=== PATIENT | female | born 1950 | race Caucasian/White ===

== ENCOUNTER 2022-08-20 18:56 | Emergency (ER) | payer OTHER ==
--- OUTSIDE RECORDS SUMMARY | 2022-08-20 19:03 | XMS REPORT | Continuity of Care Document ---
:[address] [facility] t Address [address] [place] [address] Care Team Providers Name Role Phone Mikal Kirby Attending Clinician Unavailable Ofe Christianson Attending Clinician Ethan Attending Clinician Unavailable Danielle PHIPPS Trung Attending Clinician January Vaughan Attending Clinician Norris Archuleta Attending Clinician Unavailable Tao_Brodie Attending Clinician Unavailable Clement_Marianne Admitting Clinician Unavailable Referred, Self Admitting Clinician Unavailable Tao_Brodie Admitting Clinician Unavailable Payers Payer Name Policy Type Policy Effective Date Expiration Date Sour ce Number [facility] [id number] 2021 (MEDICARE 00:00:00 REPLACEMENT HMO) [place] [address] [id number] Common [facility] Problems Condition Condition Condition Status Onset Resolution Last Treating Co mments Source Name Details Category Date Date Treatment Clinician Date [id number] Chronic Problem Common sinusitis, Spirit unspecifie - [facility] [id number] Chronic Problem Common obstructiv [facility] type [id number] GERD Problem Common without Spirit esophagiti - [facility] [id number] Primary Problem Common insomnia [facility] [id number] Pain, Problem Common joint, Spirit knee, - [facility] right [facility] [id number] Current Problem Common moderate Spirit episode of - [facility] prior episode [id number] Right Problem Common sciatic Spirit nerve pain - [facility] Retinal Retinal Problem Common disorder disorder [facility] Disorder Burning Problem Common of female sensation Spir it genital of female - [facility] organs pelvis [facility] Bladder Bladder Problem Common problem problem [facility] [id number] Stage 3a Problem Comm on chronic Spirit kidney - [facility] disease [facility] [id number] Contusion Problem Comm on of right Spirit knee, - [facility] initial [facility] [id number] Microscopi Problem Co mmon c Spirit hematuria - [facility] [id number] Pelvic Problem Common pain in Spirit female [facility] [id number] Lower Problem Common urinary [facility] [id number] BRENDA Problem Common (generaliz Spirit ed anxiety - [facility] disorder) [facility] [id number] Mixed Problem Common hyperlipid Spirit emia - [facility] [id number] Diverticul Problem Co mmon osis Spirit [facility] [id number] Pelvic Problem Common pain [facility] [id number] Essential Problem Comm on hypertensi Spirit on [facility] Allergies, Adverse Reactions, Alerts Allergy Allergy Status Severity Reaction(s) Onset Inactive Treating Comm ents Source Name Type Date Date Clinician Codeine Codeine Active Unknown Common [facility] metronid metronid Active Unknown Commo n azole azole [facility] bacitrac bacitrac Active Unknown Commo n in in Spirit - [facility] Latex Latex Active Unknown Common Spirit - [facility] Social History Social Habit Start Date Stop Date Quantity Comments Source History of Tobacco Common Spirit - [facility] Use [facility] Sex Assigned At [birth year] [facility] 00:00:00 00:00:00 Smoking Status Start Date Stop Date Source [facility] Former Smoker 2022-08-16 00:00:00 2022-08-16 Common Spiri t [facility] nter Medications Ordered Filled Start Stop Current Ordering Indication Dosage Frequency Signature Comments Components Source Medication Medication Date Date Medication? Clinician (SIG) Name Name Alfuzosin Alfuzosin 2022- No 1{table QD Alfuzosin HCl ER 10 HCl ER 10 08-16 t_immed HCl ER 10 MG MG 00:00: 00:00 iately_ MG 00 :00 after_t he_same _meal} Omeprazole Omeprazole 2021-08 No QD Omeprazole 40 MG 40 MG -09 40 MG 00:00: 00 Omeprazole Omeprazole 2021-08 No QD Omeprazole 40 MG 40 MG 1-09 40 MG 00:00: 00 Omeprazole Omeprazole 2021-08 No QD Omeprazole 40 MG 40 MG 1-09 40 MG 00:00: 00 Omeprazole Omeprazole 2021-08 No QD Omeprazole 40 MG 40 MG 1-09 40 MG 00:00: 00 cloNIDine cloNIDine 2021-08 No QD cloNIDine HCl 0.1 MG HCl 0.1 MG 0-03 HCl 0.1 MG 00:00: 00 Telmisartan Telmisartan 2021-08 No 1{table QD Telmisarta -HCTZ 80-25 -HCTZ 80-25 0-03 t} n-HCTZ MG MG 00:00: 80-25 MG 00 cloNIDine cloNIDine 2021-08 No QD cloNIDine HCl 0.1 MG HCl 0.1 MG 0-03 HCl 0.1 MG 00:00: 00 Telmisartan Telmisartan 2021-08 No 1{table QD Telmisarta -HCTZ 80-25 -HCTZ 80-25 0-03 t} n-HCTZ MG MG 00:00: 80-25 MG 00 cloNIDine cloNIDine 2021-08 No QD cloNIDine HCl 0.1 MG HCl 0.1 MG 0-03 HCl 0.1 MG 00:00: 00 Telmisartan Telmisartan 2021-1 No 1{table QD Telmisarta -HCTZ 80-25 -HCTZ 80-25 0-03 t} n-HCTZ MG MG 00:00: 80-25 MG 00 cloNIDine cloNIDine 2-1 No QD cloNIDine HCl 0.1 MG HCl 0.1 MG 0-03 HCl 0.1 MG 00:00: 00 Telmisartan Telmisartan 2021-1 No 1{table QD Telmisarta -HCTZ 80-25 -HCTZ 80-25 0-03 t} n-HCTZ MG MG 00:00: 80-25 MG 00 cloNIDine cloNIDine 2021-1 No QD cloNIDine HCl 0.1 MG HCl 0.1 MG 0-03 HCl 0.1 MG 00:00: 00 Telmisartan Telmisartan 2021-1 No 1{table QD Telmisarta -HCTZ 80-25 -HCTZ 80-25 0-03 t} n-HCTZ MG MG 00:00: 80-25 MG 00 cloNIDine cloNIDine 2021-1 No QD cloNIDine HCl 0.1 MG HCl 0.1 MG 0-03 HCl 0.1 MG 00:00: 00 Telmisartan Telmisartan 2021- No 1{table QD Telmisarta -HCTZ 80-25 -HCTZ 80-25 0-03 t} n-HCTZ MG MG 00:00: 80-25 MG 00 Protonix 40 Protonix 40 2-0 No 1{table QD Protonix MG MG 7-20 t} 40 MG 00:00: 00 Protonix 40 Protonix 40 2021-0 No 1{table QD Protonix MG MG 7-20 t} 40 MG 00:00: 00 Protonix 40 Protonix 40 2021-0 No 1{table QD Protonix MG MG 7-20 t} 40 MG 00:00: 00 Nystatin Nystatin 2021-0 2021- No QID Nystatin 169259 022732 12-09 [id number] UNIT/ML UNIT/ML 00:00: 00:00 UNIT/ML 00 :00 Nystatin Nystatin 2021-0 2021- No QID Nystatin 275910 [id number] 4-29 05-13 [id number] UNIT/ML UNIT/ML 00:00: 00:00 UNIT/ML 00 :00 Anoro Anoro 2021-0 2- No 1{puff} QD Anoro Ellipta Ellipta - 05-08 Ellipta 62.5mcg/25 62.5mcg/25 00:00: 00:00 62.5mcg/25 mcg mcg 00 :00 mcg Anoro Anoro 2021-0 2- No 1{puff} QD Anoro Ellipta Ellipta 12-09 05-08 Ellipta 62.5mcg/25 62.5mcg/25 00:00: 00:00 62.5mcg/25 mcg mcg 00 :00 mcg Breo Breo 2021-2021- No 1{puff} QD Breo Ellipta Ellipta 4-21 07-21 Ellipta 200-25 200-25 00:00: 00:00 200-25 MCG/INH MCG/INH 00 :00 MCG/INH Breo Breo 2021-0 2- No 1{puff} QD Breo Ellipta Ellipta 4-21 07-21 Ellipta 200-25 200-25 00:00: 00:00 200-25 MCG/INH MCG/INH 00 :00 MCG/INH Breo Breo 2021-0 2- No 1{puff} QD Breo Ellipta Ellipta 4-21 07-21 Ellipta 200-25 200-25 00:00: 00:00 200-25 MCG/INH MCG/INH 00 :00 MCG/INH Breo Breo 2021-0 2- No 1{puff} QD Breo Ellipta Ellipta 4-21 07-21 Ellipta 200-25 200-25 00:00: 00:00 200-25 MCG/INH MCG/INH 00 :00 MCG/INH Breo Breo 2021-0 2- No 1{puff} QD Breo Ellipta Ellipta 4-21 07-21 Ellipta 200-25 200-25 00:00: 00:00 200-25 MCG/INH MCG/INH 00 :00 MCG/INH Breo Breo 2021-0 2- No 1{puff} QD Breo Ellipta Ellipta 4-21 07-20 Ellipta 200-25 200-25 00:00: 00:00 200-25 MCG/INH MCG/INH 00 :00 MCG/INH Breo Breo 2020-0 1- No 1{puff} QD Breo Ellipta Ellipta 8-17 12-15 Ellipta 200-25 200-25 00:00: 00:00 200-25 MCG/INH MCG/INH 00 :00 MCG/INH Spiriva Spiriva Yes Oscar not Common HandiHaler HandiHaler Tip defined [facility] Advair Advair Yes Oscar not Common Diskus Diskus Tip defined [facility] Omeprazole Omeprazole Yes Oscar not C ommon Tip defined [facility] Losartan Losartan Yes Oscar not Commo n Potassium-H Potassium-H Tip defined [facility] CTZ CTZ [facility] PredniSONE PredniSONE Yes Oscar not C ommon Tip defined [facility] Telmisartan Telmisartan Yes Oscar not Common -HCTZ -HCTZ Tip defined [facility] Citalopram Citalopram Yes Oscar not C ommon Hydrobromid Hydrobromid Tip defined [facility] e e [facility] Protonix 40 Protonix 40 No 1{table QD Protonix MG MG t} 40 MG Citalopram Citalopram No 1{table QD Citalopram Hydrobromid Hydrobromid t} Hydrobromi e 10 MG e 10 MG de 10 MG Famotidine Famotidine No 1{table QD Famotidine 20 MG 20 MG t_at_be 20 MG dtime_a s_neede d} Anoro Anoro No 1{puff} QD Anoro Ellipta Ellipta Ellipta 62.5mcg/25 62.5mcg/25 62.5mcg/25 mcg mcg mcg Losartan Losartan No Losartan Potassium-H Potassium-H Potassium- CTZ CTZ HCTZ Telmisartan Telmisartan No 1{table QD Telmisarta 80 MG 80 MG t} n 80 MG hydroCHLORO hydroCHLORO No 1{table QD hydroCHLOR thiazide 25 thiazide 25 t_in_th Othiazide MG MG e_morni 25 MG ng} Omeprazole Omeprazole No Omeprazole Spiriva Spiriva No Spiriva HandiHaler HandiHaler HandiHaler Citalopram Citalopram No 1{table QD Citalopram Hydrobromid Hydrobromid t} Hydrobromi e 10 MG e 10 MG de 10 MG predniSONE predniSONE No predniSONE Advair Advair No Advair Diskus Diskus Diskus Famotidine Famotidine No 1{table QD Famotidine 20 MG 20 MG t_at_be 20 MG dtime_a s_neede d} hydroCHLORO hydroCHLORO No 1{table QD hydroCHLOR thiazide 25 thiazide 25 t_in_th Othiazide MG MG e_morni 25 MG ng} Losartan Losartan No Losartan Potassium-H Potassium-H Potassium- CTZ CTZ HCTZ Omeprazole Omeprazole No Omeprazole Spiriva Spiriva No Spiriva HandiHaler HandiHaler HandiHaler Advair Advair No Advair Diskus Diskus Diskus Telmisartan Telmisartan No 1{table QD Telmisarta 80 MG 80 MG t} n 80 MG Citalopram Citalopram No Citalopram Hydrobromid Hydrobromid Hydrobromi e 10 MG e 10 MG de 10 MG hydroCHLORO hydroCHLORO No hydroCHLOR thiazide 25 thiazide 25 Othiazide MG MG 25 MG Famotidine Famotidine No 1{table QD Famotidine 20 MG 20 MG t_at_be 20 MG dtime_a s_neede d} Famotidine Famotidine No Famotidine 20 MG 20 MG 20 MG Citalopram Citalopram No 1{table QD Citalopram Hydrobromid Hydrobromid t} Hydrobromi e 10 MG e 10 MG de 10 MG predniSONE predniSONE No predniSONE Telmisartan Telmisartan No Telmisarta 80 MG 80 MG n 80 MG hydroCHLORO hydroCHLORO No 1{table QD hydroCHLOR thiazide 25 thiazide 25 t_in_th Othiazide MG MG e_morni 25 MG ng} Losartan Losartan No Losartan Potassium-H Potassium-H Potassium- CTZ CTZ HCTZ Omeprazole Omeprazole No Omeprazole Spiriva Spiriva No Spiriva HandiHaler HandiHaler HandiHaler Advair Advair No Advair Diskus Diskus Diskus Telmisartan Telmisartan No 1{table QD Telmisarta 80 MG 80 MG t} n 80 MG Citalopram Citalopram No Citalopram Hydrobromid Hydrobromid Hydrobromi e 10 MG e 10 MG de 10 MG hydroCHLORO hydroCHLORO No hydroCHLOR thiazide 25 thiazide 25 Othiazide MG MG 25 MG Famotidine Famotidine No 1{table QD Famotidine 20 MG 20 MG t_at_be 20 MG dtime_a s_neede d} Famotidine Famotidine No Famotidine 20 MG 20 MG 20 MG Citalopram Citalopram No 1{table QD Citalopram Hydrobromid Hydrobromid t} Hydrobromi e 10 MG e 10 MG de 10 MG predniSONE predniSONE No predniSONE Telmisartan Telmisartan No Telmisarta 80 MG 80 MG n 80 MG Citalopram Citalopram No Citalopram Hydrobromid Hydrobromid Hydrobromi e 10 MG e 10 MG de 10 MG Losartan Losartan No Losartan Potassium-H Potassium-H Potassium- CTZ CTZ HCTZ Omeprazole Omeprazole No Omeprazole Spiriva Spiriva No Spiriva HandiHaler HandiHaler HandiHaler Advair Advair No Advair Diskus Diskus Diskus Famotidine Famotidine No 1{table QD Famotidine 20 MG 20 MG t_at_be 20 MG dtime_a s_neede d} hydroCHLORO hydroCHLORO No 1{table QD hydroCHLOR thiazide 25 thiazide 25 t_in_th Othiazide MG MG e_morni 25 MG ng} hydroCHLORO hydroCHLORO No hydroCHLOR thiazide 25 thiazide 25 Othiazide MG MG 25 MG Telmisartan Telmisartan No 1{table QD Telmisarta 80 MG 80 MG t} n 80 MG Famotidine Famotidine No Famotidine 20 MG 20 MG 20 MG Citalopram Citalopram No 1{table QD Citalopram Hydrobromid Hydrobromid t} Hydrobromi e 10 MG e 10 MG de 10 MG predniSONE predniSONE No predniSONE Telmisartan Telmisartan No Telmisarta 80 MG 80 MG n 80 MG Citalopram Citalopram No Citalopram Hydrobromid Hydrobromid Hydrobromi e 10 MG e 10 MG de 10 MG Citalopram Citalopram No 1{table QD Citalopram Hydrobromid Hydrobromid t} Hydrobromi e 10 MG e 10 MG de 10 MG hydroCHLORO hydroCHLORO No hydroCHLOR thiazide 25 thiazide 25 Othiazide MG MG 25 MG Telmisartan Telmisartan No 1{table QD Telmisarta 80 MG 80 MG t} n 80 MG predniSONE predniSONE No predniSONE Spiriva Spiriva No Spiriva HandiHaler HandiHaler HandiHaler Omeprazole Omeprazole No Omeprazole Famotidine Famotidine No 1{table QD Famotidine 20 MG 20 MG t_at_be 20 MG dtime_a s_neede d} hydroCHLORO hydroCHLORO No 1{table QD hydroCHLOR thiazide 25 thiazide 25 t_in_th Othiazide MG MG e_morni 25 MG ng} Losartan Losartan No Losartan Potassium-H Potassium-H Potassium- CTZ CTZ HCTZ Telmisartan Telmisartan No Telmisarta 80 MG 80 MG n 80 MG Famotidine Famotidine No Famotidine 20 MG 20 MG 20 MG Advair Advair No Advair Diskus Diskus Diskus Losartan Losartan No Losartan Potassium-H Potassium-H Potassium- CTZ CTZ HCTZ Citalopram Citalopram No 1{table QD Citalopram Hydrobromid Hydrobromid t} Hydrobromi e 10 MG e 10 MG de 10 MG hydroCHLORO hydroCHLORO No hydroCHLOR thiazide 25 thiazide 25 Othiazide MG MG 25 MG Telmisartan Telmisartan No 1{table QD Telmisarta 80 MG 80 MG t} n 80 MG predniSONE predniSONE No predniSONE Omeprazole Omeprazole No Omeprazole Citalopram Citalopram No Citalopram Hydrobromid Hydrobromid Hydrobromi e 10 MG e 10 MG de 10 MG hydroCHLORO hydroCHLORO No 1{table QD hydroCHLOR thiazide 25 thiazide 25 t_in_th Othiazide MG MG e_morni 25 MG ng} Famotidine Famotidine No Famotidine 20 MG 20 MG 20 MG Spiriva Spiriva No Spiriva HandiHaler HandiHaler HandiHaler Telmisartan Telmisartan No Telmisarta 80 MG 80 MG n 80 MG Famotidine Famotidine No 1{table QD Famotidine 20 MG 20 MG t_at_be 20 MG dtime_a s_neede d} Advair Advair No Advair Diskus Diskus Diskus Losartan Losartan No Losartan Potassium-H Potassium-H Potassium- CTZ CTZ HCTZ Citalopram Citalopram No 1{table QD Citalopram Hydrobromid Hydrobromid t} Hydrobromi e 10 MG e 10 MG de 10 MG hydroCHLORO hydroCHLORO No hydroCHLOR thiazide 25 thiazide 25 Othiazide MG MG 25 MG Telmisartan Telmisartan No 1{table QD Telmisarta 80 MG 80 MG t} n 80 MG predniSONE predniSONE No predniSONE Omeprazole Omeprazole No Omeprazole Citalopram Citalopram No Citalopram Hydrobromid Hydrobromid Hydrobromi e 10 MG e 10 MG de 10 MG hydroCHLORO hydroCHLORO No 1{table QD hydroCHLOR thiazide 25 thiazide 25 t_in_th Othiazide MG MG e_morni 25 MG ng} Famotidine Famotidine No Famotidine 20 MG 20 MG 20 MG Spiriva Spiriva No Spiriva HandiHaler HandiHaler HandiHaler Telmisartan Telmisartan No Telmisarta 80 MG 80 MG n 80 MG Famotidine Famotidine No 1{table QD Famotidine 20 MG 20 MG t_at_be 20 MG dtime_a s_neede d} Advair Advair No Advair Diskus Diskus Diskus Losartan Losartan No Losartan Potassium-H Potassium-H Potassium- CTZ CTZ HCTZ Citalopram Citalopram No 1{table QD Citalopram Hydrobromid Hydrobromid t} Hydrobromi e 10 MG e 10 MG de 10 MG hydroCHLORO hydroCHLORO No hydroCHLOR thiazide 25 thiazide 25 Othiazide MG MG 25 MG Telmisartan Telmisartan No 1{table QD Telmisarta 80 MG 80 MG t} n 80 MG predniSONE predniSONE No predniSONE Omeprazole Omeprazole No Omeprazole Citalopram Citalopram No Citalopram Hydrobromid Hydrobromid Hydrobromi e 10 MG e 10 MG de 10 MG hydroCHLORO hydroCHLORO No 1{table QD hydroCHLOR thiazide 25 thiazide 25 t_in_th Othiazide MG MG e_morni 25 MG ng} Famotidine Famotidine No Famotidine 20 MG 20 MG 20 MG Spiriva Spiriva No Spiriva HandiHaler HandiHaler HandiHaler Telmisartan Telmisartan No Telmisarta 80 MG 80 MG n 80 MG Famotidine Famotidine No 1{table QD Famotidine 20 MG 20 MG t_at_be 20 MG dtime_a s_neede d} Advair Advair No Advair Diskus Diskus Diskus Citalopram Citalopram No Citalopram Hydrobromid Hydrobromid Hydrobromi e 10 MG e 10 MG de 10 MG hydroCHLORO hydroCHLORO No hydroCHLOR thiazide 25 thiazide 25 Othiazide MG MG 25 MG Advair Advair No Advair Diskus Diskus Diskus Citalopram Citalopram No 1{table QD Citalopram Hydrobromid Hydrobromid t} Hydrobromi e 10 MG e 10 MG de 10 MG Losartan Losartan No Losartan Potassium-H Potassium-H Potassium- CTZ CTZ HCTZ Spiriva Spiriva No Spiriva HandiHaler HandiHaler HandiHaler Telmisartan Telmisartan No Telmisarta 80 MG 80 MG n 80 MG Famotidine Famotidine No Famotidine 20 MG 20 MG 20 MG Famotidine Famotidine No 1{table QD Famotidine 20 MG 20 MG t_at_be 20 MG dtime_a s_neede d} Omeprazole Omeprazole No Omeprazole predniSONE predniSONE No predniSONE Telmisartan Telmisartan No 1{table QD Telmisarta 80 MG 80 MG t} n 80 MG hydroCHLORO hydroCHLORO No 1{table QD hydroCHLOR thiazide 25 thiazide 25 t_in_th Othiazide MG MG e_morni 25 MG ng} Citalopram Citalopram No Citalopram Hydrobromid Hydrobromid Hydrobromi e 10 MG e 10 MG de 10 MG hydroCHLORO hydroCHLORO No hydroCHLOR thiazide 25 thiazide 25 Othiazide MG MG 25 MG Advair Advair No Advair Diskus Diskus Diskus Citalopram Citalopram No 1{table QD Citalopram Hydrobromid Hydrobromid t} Hydrobromi e 10 MG e 10 MG de 10 MG Losartan Losartan No Losartan Potassium-H Potassium-H Potassium- CTZ CTZ HCTZ Spiriva Spiriva No Spiriva HandiHaler HandiHaler HandiHaler Telmisartan Telmisartan No Telmisarta 80 MG 80 MG n 80 MG Famotidine Famotidine No Famotidine 20 MG 20 MG 20 MG Famotidine Famotidine No 1{table QD Famotidine 20 MG 20 MG t_at_be 20 MG dtime_a s_neede d} Omeprazole Omeprazole No Omeprazole predniSONE predniSONE No predniSONE Telmisartan Telmisartan No 1{table QD Telmisarta 80 MG 80 MG t} n 80 MG hydroCHLORO hydroCHLORO No 1{table QD hydroCHLOR thiazide 25 thiazide 25 t_in_th Othiazide MG MG e_morni 25 MG ng} Telmisartan Telmisartan No 1{table QD Telmisarta 80 MG 80 MG t} n 80 MG Anoro Anoro No 1{puff} QD Anoro Ellipta Ellipta Ellipta 62.5mcg/25 62.5mcg/25 62.5mcg/25 mcg mcg mcg Citalopram Citalopram No 1{table QD Citalopram Hydrobromid Hydrobromid t} Hydrobromi e 10 MG e 10 MG de 10 MG hydroCHLORO hydroCHLORO No 1{table QD hydroCHLOR thiazide 25 thiazide 25 t_in_th Othiazide MG MG e_morni 25 MG ng} Famotidine Famotidine No 1{table QD Famotidine 20 MG 20 MG t_at_be 20 MG dtime_a s_neede d} Telmisartan Telmisartan No 1{table QD Telmisarta 80 MG 80 MG t} n 80 MG Anoro Anoro No 1{puff} QD Anoro Ellipta Ellipta Ellipta 62.5mcg/25 62.5mcg/25 62.5mcg/25 mcg mcg mcg Citalopram Citalopram No 1{table QD Citalopram Hydrobromid Hydrobromid t} Hydrobromi e 10 MG e 10 MG de 10 MG hydroCHLORO hydroCHLORO No 1{table QD hydroCHLOR thiazide 25 thiazide 25 t_in_th Othiazide MG MG e_morni 25 MG ng} Famotidine Famotidine No 1{table QD Famotidine 20 MG 20 MG t_at_be 20 MG dtime_a s_neede d} Telmisartan Telmisartan No 1{table QD Telmisarta 80 MG 80 MG t} n 80 MG Famotidine Famotidine No 1{table QD Famotidine 20 MG 20 MG t_at_be 20 MG dtime_a s_neede d} Citalopram Citalopram No 1{table QD Citalopram Hydrobromid Hydrobromid t} Hydrobromi e 10 MG e 10 MG de 10 MG hydroCHLORO hydroCHLORO No 1{table QD hydroCHLOR thiazide 25 thiazide 25 t_in_th Othiazide MG MG e_morni 25 MG ng} Anoro Anoro No 1{puff} QD Anoro Ellipta Ellipta Ellipta 62.5mcg/25 62.5mcg/25 62.5mcg/25 mcg mcg mcg Protonix 40 Protonix 40 No 1{table QD Protonix MG MG t} 40 MG Famotidine Famotidine No 1{table QD Famotidine 20 MG 20 MG t_at_be 20 MG dtime_a s_neede d} Citalopram Citalopram No 1{table QD Citalopram Hydrobromid Hydrobromid t} Hydrobromi e 10 MG e 10 MG de 10 MG Anoro Anoro No 1{puff} QD Anoro Ellipta Ellipta Ellipta 62.5mcg/25 62.5mcg/25 62.5mcg/25 mcg mcg mcg Protonix 40 Protonix 40 No 1{table QD Protonix MG MG t} 40 MG Famotidine Famotidine No 1{table QD Famotidine 20 MG 20 MG t_at_be 20 MG dtime_a s_neede d} Citalopram Citalopram No 1{table QD Citalopram Hydrobromid Hydrobromid t} Hydrobromi e 10 MG e 10 MG de 10 MG Anoro Anoro No 1{puff} QD Anoro Ellipta Ellipta Ellipta 62.5mcg/25 62.5mcg/25 62.5mcg/25 mcg mcg mcg Protonix 40 Protonix 40 No 1{table QD Protonix MG MG t} 40 MG Citalopram Citalopram No 1{table QD Citalopram Hydrobromid Hydrobromid t} Hydrobromi e 10 MG e 10 MG de 10 MG Famotidine Famotidine No 1{table QD Famotidine 20 MG 20 MG t_at_be 20 MG dtime_a s_neede d} Anoro Anoro No 1{puff} QD Anoro Ellipta Ellipta Ellipta 62.5mcg/25 62.5mcg/25 62.5mcg/25 mcg mcg mcg Citalopram Citalopram No 1{table QD Citalopram Hydrobromid Hydrobromid t} Hydrobromi e 10 MG e 10 MG de 10 MG cloNIDine cloNIDine No QD cloNIDine HCl 0.1 MG HCl 0.1 MG HCl 0.1 MG Telmisartan Telmisartan No 1{table QD Telmisarta -HCTZ 80-25 -HCTZ 80-25 t} n-HCTZ MG MG 80-25 MG Anoro Anoro No 1{puff} QD Anoro Ellipta Ellipta Ellipta 62.5mcg/25 62.5mcg/25 62.5mcg/25 mcg mcg mcg Famotidine Famotidine No 1{table QD Famotidine 20 MG 20 MG t_at_be 20 MG dtime_a s_neede d} Protonix 40 Protonix 40 No 1{table QD Protonix MG MG t} 40 MG Citalopram Citalopram No 1{table QD Citalopram Hydrobromid Hydrobromid t} Hydrobromi e 10 MG e 10 MG de 10 MG cloNIDine cloNIDine No QD cloNIDine HCl 0.1 MG HCl 0.1 MG HCl 0.1 MG Telmisartan Telmisartan No 1{table QD Telmisarta -HCTZ 80-25 -HCTZ 80-25 t} n-HCTZ MG MG 80-25 MG Anoro Anoro No 1{puff} QD Anoro Ellipta Ellipta Ellipta 62.5mcg/25 62.5mcg/25 62.5mcg/25 mcg mcg mcg Famotidine Famotidine No 1{table QD Famotidine 20 MG 20 MG t_at_be 20 MG dtime_a s_neede d} Protonix 40 Protonix 40 No 1{table QD Protonix MG MG t} 40 MG hydrALAZINE hydrALAZINE No 1{table TID hydrALAZIN HCl 25 MG HCl 25 MG t_with_ E HCl 25 food} MG Anoro Anoro No 1{puff} QD Anoro Ellipta Ellipta Ellipta 62.5mcg/25 62.5mcg/25 62.5mcg/25 mcg mcg mcg cloNIDine cloNIDine No QD cloNIDine HCl 0.1 MG HCl 0.1 MG HCl 0.1 MG Famotidine Famotidine No 1{table QD Famotidine 20 MG 20 MG t_at_be 20 MG dtime_a s_neede d} Telmisartan Telmisartan No 1{table QD Telmisarta -HCTZ 80-25 -HCTZ 80-25 t} n-HCTZ MG MG 80-25 MG Citalopram Citalopram No 1{table QD Citalopram Hydrobromid Hydrobromid t} Hydrobromi e 10 MG e 10 MG de 10 MG hydrALAZINE hydrALAZINE No 1{table TID hydrALAZIN HCl 25 MG HCl 25 MG t_with_ E HCl 25 food} MG Anoro Anoro No 1{puff} QD Anoro Ellipta Ellipta Ellipta 62.5mcg/25 62.5mcg/25 62.5mcg/25 mcg mcg mcg cloNIDine cloNIDine No QD cloNIDine HCl 0.1 MG HCl 0.1 MG HCl 0.1 MG Famotidine Famotidine No 1{table QD Famotidine 20 MG 20 MG t_at_be 20 MG dtime_a s_neede d} Telmisartan Telmisartan No 1{table QD Telmisarta -HCTZ 80-25 -HCTZ 80-25 t} n-HCTZ MG MG 80-25 MG Citalopram Citalopram No 1{table QD Citalopram Hydrobromid Hydrobromid t} Hydrobromi e 10 MG e 10 MG de 10 MG Famotidine Famotidine No 1{table QD Famotidine 20 MG 20 MG t_at_be 20 MG dtime_a s_neede d} Anoro Anoro No 1{puff} QD Anoro Ellipta Ellipta Ellipta 62.5mcg/25 62.5mcg/25 62.5mcg/25 mcg mcg mcg hydrALAZINE hydrALAZINE No 1{table TID hydrALAZIN HCl 25 MG HCl 25 MG t_with_ E HCl 25 food} MG Citalopram Citalopram No 1{table QD Citalopram Hydrobromid Hydrobromid t} Hydrobromi e 10 MG e 10 MG de 10 MG cloNIDine cloNIDine No QD cloNIDine HCl 0.1 MG HCl 0.1 MG HCl 0.1 MG Telmisartan Telmisartan No 1{table QD Telmisarta -HCTZ 80-25 -HCTZ 80-25 t} n-HCTZ MG MG 80-25 MG amLODIPine amLODIPine No 1{table QD amLODIPine Besylate 5 Besylate 5 t} Besylate 5 MG MG MG Anoro Anoro No 1{puff} QD Anoro Ellipta Ellipta Ellipta 62.5mcg/25 62.5mcg/25 62.5mcg/25 mcg mcg mcg Telmisartan Telmisartan No 1{table QD Telmisarta -HCTZ 80-25 -HCTZ 80-25 t} n-HCTZ MG MG 80-25 MG Famotidine Famotidine No 1{table QD Famotidine 20 MG 20 MG t_at_be 20 MG dtime_a s_neede d} hydrALAZINE hydrALAZINE No 1{table TID hydrALAZIN HCl 25 MG HCl 25 MG t_with_ E HCl 25 food} MG cloNIDine cloNIDine No QD cloNIDine HCl 0.1 MG HCl 0.1 MG HCl 0.1 MG Citalopram Citalopram No 1{table QD Citalopram Hydrobromid Hydrobromid t} Hydrobromi e 10 MG e 10 MG de 10 MG Protonix 40 Protonix 40 No 1{table QD Protonix MG MG t} 40 MG Famotidine Famotidine No 1{table QD Famotidine 20 MG 20 MG t_at_be 20 MG dtime_a s_neede d} Citalopram Citalopram No 1{table QD Citalopram Hydrobromid Hydrobromid t} Hydrobromi e 10 MG e 10 MG de 10 MG Anoro Anoro No 1{puff} QD Anoro Ellipta Ellipta Ellipta 62.5mcg/25 62.5mcg/25 62.5mcg/25 mcg mcg mcg Protonix 40 Protonix 40 No 1{table QD Protonix MG MG t} 40 MG Famotidine Famotidine No 1{table QD Famotidine 20 MG 20 MG t_at_be 20 MG dtime_a s_neede d} Citalopram Citalopram No 1{table QD Citalopram Hydrobromid Hydrobromid t} Hydrobromi e 10 MG e 10 MG de 10 MG Anoro Anoro No 1{puff} QD Anoro Ellipta Ellipta Ellipta 62.5mcg/25 62.5mcg/25 62.5mcg/25 mcg mcg mcg Anoro Anoro No Anoro Ellipta Ellipta 01-11 Ellipta 62.5mcg/25 62.5mcg/25 00:00 62.5mcg/25 mcg mcg :00 mcg Immunizations Ordered Immunization Filled Immunization Date Status Commen ts Source Name Name FluAD FluAD 2021-05-20 [facility] FluAD FluAD 2021-05-20 [facility] 10:[facility] - [facility] FluAD FluAD 2021-05-20 [facility] 10:29:00 - [facility] FluAD FluAD 2021-05-20 [facility] 10:: - [facility] FluAD FluAD 2021-05-20 [facility] 10:29: - [facility] FluAD FluAD 2021-05-20 Com[facility] 10:29:00 - [facility] FluAD FluAD 2021-05-20 [facility] 10[facility]29:00 - [facility] FluAD FluAD 2021-05-20 [facility] 10:29:00 - [facility] FluAD FluAD 2021-05-20 [facility] 10:29:00 - [facility] FluAD FluAD 2021-05-20 [facility] 10:29:00 - [facility] FluAD FluAD 2021-05-20 [facility] 10:29:00 - [facility] FluAD FluAD 2021-05-20 [facility] 10:29:00 - [facility] FluAD FluAD 2021-05-20 [facility] 10:29:00 - [facility] FluAD FluAD 2021-05-20 [facility] 10:29:00 - [facility] FluAD FluAD 2021-05-20 [facility] 10:29:00 - [facility] FluAD FluAD 2021-05-20 [facility] 10:29:00 - [facility] FluAD FluAD 2021-05-20 [facility] 10:29:00 - [facility] FluAD FluAD 2021-05-20 [facility]pleted [facility] 10:29:00 - [facility] FluAD FluAD 2021-05-20 [facility] 10:29:00 - [facility] FluAD FluAD 2021-05-20 [facility] 10:29:00 - [facility] FluAD FluAD 2021-05-20 [facility] 10::00 - [facility] FluAD FluAD 2021-05-20 [facility] 10:29:00 - [facility] FluAD FluAD 2021-05-20 [facility] 10:29:00 - [facility] FluAD FluAD 2021-05-20 [facility] 10:29:00 - [facility] FluAD FluAD 2021-05-20 [facility] 10:29:00 - [facility] Shingrix Shingrix 2019-08-12 Completed [facility] 15:26:00 - [facility] Adacel (Tdap) Adacel (Tdap) 2019-08-12 [facility] Shingrix Shingrix 2019-08-12 [facility]pleted [facility] 15:26:00 - [facility] Adacel (Tdap) Adacel (Tdap) 2019-08-12 [facility] - [facility] Shingrix Shingrix 2019-08-12 [facility]pleted [facility] 15:26:00 - [facility] Adacel (Tdap) Adacel (Tdap) 2019-08-12 [facility] - [facility] Shingrix Shingrix 2019-08-12 [facility]pleted [facility] 15:26:00 - [facility] Adacel (Tdap) Adacel (Tdap) 2019-08-12 [facility] - [facility] Shingrix Shingrix 2019-08-12 [facility]pleted [facility] 15:26:00 - [facility] Adacel (Tdap) Adacel (Tdap) 2019-08-12 [facility] Shingrix Shingrix 2019-08-12 [facility]pleted [facility] 15:26:00 - [facility] Adacel (Tdap) Adacel (Tdap) 2019-08-12 [facility] - [facility] Shingrix Shingrix 2019-08-12 [facility] 15:26:00 - [facility] Adacel (Tdap) Adacel (Tdap) 2019-08-12 [facility] - [facility] Shingrix Shingrix 2019-08-12 [facility] 15:26:00 - [facility] Adacel (Tdap) Adacel (Tdap) 2019-08-12 [facility] - [facility] Shingrix Shingrix 2019-08-12 [facility] 15:26:00 - [facility] Adacel (Tdap) Adacel (Tdap) 2019-08-12 [facility] - [facility] Shingrix Shingrix 2019-08-12 [facility] 15:26:00 - [facility] Adacel (Tdap) Adacel (Tdap) 2019-08-12 [facility] - [facility] Shingrix Shingrix 2019-08-12 [facility] 15:26:00 - [facility] Adacel (Tdap) Adacel (Tdap) 2019-08-12 [facility] - [facility] Shingrix Shingrix 2019-08-12 [facility] 15:26:00 - [facility] Adacel (Tdap) Adacel (Tdap) 2019-08-12 [facility] - [facility] Shingrix Shingrix 2019-08-12 [facility] 15:26:00 - [facility] Adacel (Tdap) Adacel (Tdap) 2019-08-12 [facility] - [facility] Shingrix Shingrix 2019-08-12 [facility] 15:26:00 - [facility] Adacel (Tdap) Adacel (Tdap) 2019-08-12 [facility]pleted [facility]:26:[facility] - [facility] Shingrix Shingrix 2019-08-12 [facility] 15:26:00 - [facility] Adacel (Tdap) Adacel (Tdap) 2019-08-12 [facility]:26[facility] - [facility] Shingrix Shingrix 2019-08-12 [facility] 15:26:00 - [facility] Adacel (Tdap) Adacel (Tdap) 2019-08-12 [facility]:26[facility] - [facility] Shingrix Shingrix 2019-08-12 [facility] 15:26:00 - [facility] Adacel (Tdap) Adacel (Tdap) 2019-08-12 [facility]:26[facility] - [facility] Shingrix Shingrix 2019-08-12 [facility] 15:26:00 - [facility] Adacel (Tdap) Adacel (Tdap) 2019-08-12 [facility] - [facility] Shingrix Shingrix 2019-08-12 [facility] 15:26:00 - [facility] Adacel (Tdap) Adacel (Tdap) 2019-08-12 [facility]:26[facility] - [facility] Shingrix Shingrix 2019-08-12 [facility]pleted [facility] 15:26:00 - [facility] Adacel (Tdap) Adacel (Tdap) 2019-08-12 [facility]:26:00 - [facility] Shingrix Shingrix 2019-08-12 [facility]pleted [facility] 15:26:00 - [facility] Adacel (Tdap) Adacel (Tdap) 2019-08-12 [facility]:26[facility] - [facility] Shingrix Shingrix 2019-08-12 [facility]pleted [facility] 15:26:00 - [facility] Adacel (Tdap) Adacel (Tdap) 2019-08-12 [facility]:26[facility] - [facility] Shingrix Shingrix 2019-08-12 [facility] 15:26:00 - [facility] Adacel (Tdap) Adacel (Tdap) 2019-08-12 [facility]:26:[facility] - [facility] Shingrix Shingrix 2019-08-12 [facility]pleted [facility] 15:26:00 - [facility] Adacel (Tdap) Adacel (Tdap) 2019-08-12 [facility]:26:[facility] - [facility] Shingrix Shingrix 2019-08-12 [facility] 15:26:00 - [facility] Adacel (Tdap) Adacel (Tdap) 2019-08-12 [facility] Prevnar 13 (PCV13) Prevnar 13 (PCV13) 2018-08-12 [facility]pleted [facility] 15:26:00 - [facility] Prevnar 13 (PCV13) Prevnar 13 (PCV13) 2018-08-12 [facility] 15:26:00 [facility] Prevnar 13 (PCV13) Prevnar 13 (PCV13) 2018-08-12 [facility]pleted [facility] 15:26:00 - [facility] Prevnar 13 (PCV13) Prevnar 13 (PCV13) 2018-08-12 [facility] 15:26:00 [facility] Prevnar 13 (PCV13) Prevnar 13 (PCV13) 2018-08-12 [facility] 15:26:00 - [facility] Prevnar 13 (PCV13) Prevnar 13 (PCV13) 2018-08-12 [facility] 15:26:00 [facility] Prevnar 13 (PCV13) Prevnar 13 (PCV13) 2018-08-12 [facility] 15:26:00 [facility] Prevnar 13 (PCV13) Prevnar 13 (PCV13) 2018-08-12 [facility] 15:26:00 [facility] Prevnar 13 (PCV13) Prevnar 13 (PCV13) 2018-08-12 [facility] 15:26:00 [facility] Prevnar 13 (PCV13) Prevnar 13 (PCV13) 2018-08-12 [facility] 15:26:00 [facility] Prevnar 13 (PCV13) Prevnar 13 (PCV13) 2018-08-12 [facility] 15:26:00 [facility] Prevnar 13 (PCV13) Prevnar 13 (PCV13) 2018-08-12 [facility] 15:26:00 [facility] Prevnar 13 (PCV13) Prevnar 13 (PCV13) 2018-08-12 [facility] 15:26:00 [facility] Prevnar 13 (PCV13) Prevnar 13 (PCV13) 2018-08-12 [facility] 15:26:00 [facility] Prevnar 13 (PCV13) Prevnar 13 (PCV13) 2018-08-12 [facility] 15:26:00 [facility] Prevnar 13 (PCV13) Prevnar 13 (PCV13) 2018-08-12 [facility] 15:26:00 [facility] Prevnar 13 (PCV13) Prevnar 13 (PCV13) 2018-08-12 [facility] 15:26:00 [facility] Prevnar 13 (PCV13) Prevnar 13 (PCV13) 2018-08-12 [facility] 15:26:00 [facility] Prevnar 13 (PCV13) Prevnar 13 (PCV13) 2018-08-12 [facility] 15:26:00 [facility] Prevnar 13 (PCV13) Prevnar 13 (PCV13) 2018-08-12 [facility] 15:26:00 - [facility] Prevnar 13 (PCV13) Prevnar 13 (PCV13) 2018-08-12 [facility] 15:26:00 - [facility] Prevnar 13 (PCV13) Prevnar 13 (PCV13) 2018-08-12 [facility] 15:26:00 - [facility] Prevnar 13 (PCV13) Prevnar 13 (PCV13) 2018-08-12 [facility] 15:26:00 - [facility] Prevnar 13 (PCV13) Prevnar 13 (PCV13) 2018-08-12 [facility] 15:26:00 - [facility] Prevnar 13 (PCV13) Prevnar 13 (PCV13) 2018-08-12 [facility] 15:26:00 [facility] Vital Signs Vital Name Observation Time Observation Value Comments Source height 2022-08-16 08:15:00 60 [in_i] [facility] weight 2022-08-16 08:15:00 147.8 [lb_av] [facility] temperature 2022-08-16 08:15:00 97.6 [degF] [facility] bmi 2022-08-16 08:15:00 28.86 kg/m2 [facility] oximetry 2022-08-16 08:15:00 97 % [facility] respiratory rate 2022-08-16 08:15:00 16 /min Comm on [facility] blood pressure 2022-08-16 08:15:00 165 mm[Hg] [facility] systolic [facility] blood pressure 2022-08-16 08:15:00 73 mm[Hg] [facility] diastolic [facility] height 2022-07-26 11:00:00 60 [in_i] [facility] weight 2022-07-26 11:00:00 149.6 [lb_av] [facility] temperature 2022-07-26 11:00:00 97.4 [degF] [facility] bmi 2022-07-26 11:00:00 29.21 kg/m2 [facility] oximetry 2022-07-26 11:00:00 99 % [facility] respiratory rate 2022-07-26 11:00:00 18 /min Comm on [facility] blood pressure 2022-07-26 11:00:00 163 mm[Hg] [facility] - systolic [facility] blood pressure 2022-07-26 11:00:00 72 mm[Hg] [facility] height 2022-06-21 10:20:00 60 [in_i] [facility] weight 2022-06-21 10:20:00 145.0 [lb_av] [facility] temperature 2022-06-21 10:20:00 97.8 [degF] [facility] bmi 2022-06-21 10:20:00 28.32 kg/m2 [facility] oximetry 2022-06-21 10:20:00 98 % [facility] respiratory rate 2022-06-21 10:20:00 18 /min Comm on [facility] blood pressure 2022-06-21 10:20:00 137 mm[Hg] [facility] - systolic [facility] blood pressure 2022-06-21 10:20:00 62 mm[Hg] [facility] - diastolic [facility] height 2022-05-29 14:20:00 60 [in_i] [facility] weight 2022-05-29 14:20:00 145.1 [lb_av] [facility] temperature 2022-05-29 14:20:00 97.5 [degF] [facility] bmi 2022-05-29 14:20:00 28.33 kg/m2 [facility] oximetry 2022-05-29 14:20:00 99 % [facility] respiratory rate 2022-05-29 14:20:00 18 /min Comm on [facility] blood pressure 2022-05-29 14:20:00 138 mm[Hg] [facility] - systolic [facility] blood pressure 2022-05-29 14:20:00 72 mm[Hg] [facility] - diastolic [facility] weight 2022-05-15 15:10:00 145.0 [lb_av] [facility] temperature 2022-05-15 15:10:00 97.4 [degF] [facility] bmi 2022-05-15 15:10:00 28.32 kg/m2 [facility] oximetry 2022-05-15 15:10:00 96 % [facility] respiratory rate 2022-05-15 15:10:00 17 /min Comm on [facility] blood pressure 2022-05-15 15:10:00 173 mm[Hg] [facility] - systolic [facility] blood pressure 2022-05-15 15:10:00 78 mm[Hg] [facility] - diastolic [facility] height 2022-05-15 15:10:00 60 [in_i] [facility] height 2022-03-01 11:40:00 60 [in_i] [facility] weight 2022-03-01 11:40:00 143 [lb_av] [facility] temperature 2022-03-01 11:40:00 98.2 [degF] [facility] bmi 2022-03-01 11:40:00 27.92 kg/m2 [facility] oximetry 2022-03-01 11:40:00 99 % [facility] respiratory rate 2022-03-01 11:40:00 16 /min Comm on [facility] blood pressure 2022-03-01 11:40:00 135 mm[Hg] [facility] - systolic [facility] blood pressure 2022-03-01 11:40:00 78 mm[Hg] [facility] height 2021-12-01 10:40:00 60 [in_i] [facility] weight 2021-12-01 10:40:00 143.8 [lb_av] Common [facility] temperature 2021-12-01 10:40:00 98.1 [degF] [facility] bmi 2021-12-01 10:40:00 28.08 kg/m2 [facility] oximetry 2021-12-01 10:40:00 100 % [facility] respiratory rate 2021-12-01 10:40:00 18 /min Comm on [facility] blood pressure 2021-12-01 10:40:00 139 mm[Hg] [facility] - systolic [facility] blood pressure 2021-12-01 10:40:00 88 mm[Hg] [facility] - diastolic [facility] height 2021-08-26 10:30:00 60 [in_i] [facility] weight 2021-08-26 10:30:00 147.3 [lb_av] [facility] temperature 2021-08-26 10:30:00 98.4 [degF] [facility] bmi 2021-08-26 10:30:00 28.76 kg/m2 [facility] oximetry 2021-08-26 10:30:00 97 % [facility] respiratory rate 2021-08-26 10:30:00 18 /min Comm on [facility] blood pressure 2021-08-26 10:30:00 134 mm[Hg] [facility] - systolic [facility] blood pressure 2021-08-26 10:30:00 82 mm[Hg] [facility] - diastolic [facility] height 2021-08-26 09:20:00 60 [in_i] [facility] weight 2021-08-26 09:20:00 147.3 [lb_av] [facility] temperature 2021-08-26 09:20:00 98.4 [degF] [facility] bmi 2021-08-26 09:20:00 28.76 kg/m2 [facility] oximetry 2021-08-26 09:20:00 97 % [facility] respiratory rate 2021-08-26 09:20:00 18 /min Comm on [facility] blood pressure 2021-08-26 09:20:00 134 mm[Hg] [facility] [place] [place] systolic [facility] blood pressure 2021-08-26 09:20:00 82 mm[Hg] [facility] [place] [place] diastolic [facility] height 2021-05-25 10:40:00 60 [in_i] [facility] weight 2021-05-25 10:40:00 145.0 [lb_av] [facility] temperature 2021-05-25 10:40:00 97.4 [degF] [facility] bmi 2021-05-25 10:40:00 28.32 kg/m2 [facility] oximetry 2021-05-25 10:40:00 96 % [facility] respiratory rate 2021-05-25 10:40:00 17 /min Comm on [facility] blood pressure 2021-05-25 10:40:00 132 mm[Hg] [facility] systolic [facility] blood pressure 2021-05-25 10:40:00 71 mm[Hg] [facility] diastolic [facility] Procedures This patient has no known procedures. Plan of Care Planned Activity Planned Date Details Comments Source Future Scheduled 2022-07-26 COLONOSCOPY SCREENING [facility] Test 22:01:28 [code = COLONOSCOPY SCREENING] Future Scheduled 2022-07-26 SHINGLES VACCINES (1 Met [facility] Test 22:01:28 of 2) [code = SHINGLES VACCINES (1 of 2)] Future Scheduled 2022-07-26 65+ PNEUMOCOCCAL [facility] Test 22:01:28 VACCINE (1 - PCV) [code = 65+ PNEUMOCOCCAL VACCINE (1 - PCV)] Future Scheduled 2022-07-26 COVID-19 VACCINE (3 - [facility] Test 22:01:28 Booster for Pfizer series) [code = COVID-19 VACCINE (3 - Booster for Pfizer series)] Future Scheduled 2022-07-26 INFLUENZA VACCINE Method t Hospital Test 22:01:28 [code = INFLUENZA VACCINE] Future Scheduled 2022-07-26 BREAST CANCER [facility] Test 22:01:28 SCREENING [code = BREAST CANCER SCREENING] Encounters Start End Encounter Admission Attending Care Care Encounter Source Date/Time Date/Time Type Type Clinicians Facility Department ID 2022-08-11 [facility] [id number] Common 11:25:00 Mikal [facility] 2022-07-27 Out[facility] [id number] Common 13:25:01 Mikal [facility] 2022-06-19 Out[facility] Kirby, [facility] [id number] Common 11:09:00 Mikal [facility] 2022-05-16 Outpatient Kirby, [facility] [id number] Common 13:12:01 Mikal [facility] 2022-05-01 Outpatient Kirby, [facility] [id number] Common 13:31:00 Mikal [facility] 2021-09-07 Out[facility] Kirby, [facility] [id number] Common 14:35:39 Mikal [facility] 2021-09-07 Outpatient Kirby, [facility] [id number] Common 14:34:53 Mikal [facility] 2021-09-07 Outpatient Kirby, [facility] [id number] Common 13:26:07 Mikal [id number] [facility] 2021-09-07 Outpatient STLMLC [facility] [id number] Common 13:09:10 [id number] [facility] 2022-08-16 2022-08-16 OFFICE STLMLC STLMLC [id number] Co mmon 00:00:00 00:00:00 VISIT [facility] ESTAB PT - [facility] LEVEL 2 [facility] 2022-07-26 2022-07-26 OFFICE STLMLC STLMLC [id number] Co mmon 00:00:00 00:00:00 VISIT NEW [facility] it PT LEVEL 2 - [facility] 2022-07-12 2022-07-12 (TEL) STLMLC STLMLC [id number] Co m[facility] 00:00:00 00:00:00 [facility] 2022-07-04 2022-07-04 CAV Ofe 2.16.840. [id number]. CLAC [id number] [facility] 15:00:00 16:00:00 Meghan [id number] [facility] [id number] 2022-06-21 2022-06-21 OFFICE STLMLC STLMLC [id number] [facility] 00:00:00 00:00:00 [facility] PT - [facility] LEVEL 4 [facility] 2022-06-11 2022-06-11 (WEB) STLMLC STLMLC [id number] Co m[facility] 00:00:00 00:00:00 [facility] 2022-05-29 2022-05-29 OFFICE STLMLC STLMLC [id number] Co m[facility] 00:00:00 00:00:00 [facility] PT - [facility] LEVEL 4 [facility] 2022-05-17 2022-05-17 (TEL) STLMLC STLMLC [id number] Co mmon 00:00:00 00:00:00 [facility] 2022-05-17 2022-05-17 Transcrisimon Kirby [id number] Methodi 00:00:00 00:00:00 Orders [facility] [id number] [place] [id number] Hospit a .[id number] l .8 2022-05-15 2022-05-15 (TEL) STLMLC STLMLC [id number] Co mmon 00:00:00 00:00:00 [facility] 2022-05-15 2022-05-15 OFFICE STLMLC STLMLC [id number] Co mmon 00:00:00 00:00:00 VISIT [facility] PT - CHI LEVEL 4 [facility] 2022-05-01 2022-05-01 (TEL) STLMLC STLMLC [id number] Co mmon 00:00:00 00:00:00 [facility] 2022-03-14 2022-03-14 (TEL) STLMLC STLMLC [id number] Co mmon 00:00:00 00:00:00 [facility] 2022-03-01 2022-03-01 OFFICE STLMLC STLMLC [id number] Co mmon 00:00:00 00:00:00 VISIT [facility] PT - [facility] 4 [facility] 2022-02-24 2022-02-24 Outpatient Tumelson_A [facility] DM [id number] 00:00:00 00:00:00 [id number] [facility] 2022-01-18 2022-01-18 Lab Attar, .2.840.1 [id number] Method 10:20:00 10:25:00 Trung [id number] Hospit a .[id number] l .8 2022-01-18 2022-01-18 Outpatient ATTAR, [facility] [id number] [address] [place] 00:00:00 00:00:00 [address] 2021-12-09 2021-12-09 (TEL) STLMLC STLMLC [id number] Co mmon 00:00:00 00:00:00 [facility] 2021-12-08 2021-12-08 (TEL) STLMLC STLMLC [id number] Co mmon 00:00:00 00:00:00 [facility] 2021-12-05 2021-12-05 CAV January 2.16.840. 2.16.840.1. CLAC [id number] [facility] 15:30:00 16:30:00 [place] [id number]. [id number] [address] [id number] 2021-12-05 2021-12-05 (TEL) STLMLC STLMLC [id number] Co mmon 00:00:00 00:00:00 [facility] 2021-12-02 2021-12-02 (TEL) STLMLC STLMLC [id number] Co mmon 00:00:00 00:00:00 [facility] 2021-12-02 2021-12-02 (TEL) STLMLC STLMLC [id number] Co mmon 00:00:00 00:00:00 [facility] 2021-12-01 2021-12-01 OFFICE STLMLC STLMLC [id number] Co m[facility] 00:00:00 00:00:00 [facility] - [facility] LEVEL 4 [facility] 2021-11-28 2021-11-28 Outpatient Nanielson_A [facility] DM [id number] 03:32:00 03:32:00 [id number] [facility] 2021-11-10 2021-11-10 Inpatient Norris [facility] [id number] [facility] 13:05:00 13:05:00 [address] [facility] 2021-11-01 2021-11-01 (TEL) STLMLC STLMLC [id number] Co mmon 00:00:00 00:00:00 [facility] 2021-08-26 2021-08-26 OFFICE STLMLC STLMLC [id number] Co mmon 00:00:00 00:00:00 VISIT EST Spir it PT LEVEL 3 - [facility] 2021-08-26 2021-08-26 SUB ANNUAL STLMLC STLMLC [id number] Common 00:00:00 00:00:00 MCR Spirit WELLNESS - [facility] 2021-05-25 2021-05-25 OFFICE STLMLC STLMLC [id number] Co mmon 00:00:00 00:00:00 VISIT [facility] LEVEL 4 [facility] 2021-04-22 2021-04-22 Outpatient STLMLC STLMLC [id number] Common 00:00:00 00:00:00 [facility] 2021-04-12 2021-04-12 [id number] [facility] 12:05:00 12:05:00 [facility] 2021-03-29 2021-03-29 Outpatient STLMLC STLMLC [id number] Common 00:00:00 00:00:00 [facility] 2021-03-02 2021-03-02 Outpatient STLMLC STLMLC [id number] Common 00:00:00 00:00:00 [facility] 2021-02-23 2021-02-23 Outpatient STLMLC STLMLC [id number] Common 00:00:00 00:00:00 [facility] 2021-02-23 2021-02-23 Outpatient STLMLC STLMLC [id number] Common 00:00:00 00:00:00 [facility] 2021-01-07 2021-01-07 Outpatient [facility] [id number] Devoted 08:00:00 08:00:00 0528 [facility] 2019-02-05 2019-02-05 [id number] Common 13:30:00 13:30:00 [facility] Results Test Description Test Time Test Comments Results Result [facility] e Comments - CT LD LUNG CA 2021-11-11 SCREENING 00:00:00 [facility] 1950 Sex: F Name: MYRTLE DIAS [facility] [place] : 1950 Age/S: 71 / F [address] [place] [address] Unit #: [id number] Loc: [place] [address] Phys: Norris Archuleta MD Acct: [id number] Dis Date: Status: DEP CLI PHONE #: [phone] Exam Date: 11/10/2021 1344 FAX #: [phone] Reason: Z87.891, PERSONAL HISTORY OF TOBACCO USE. PERSO EXAMS: CPT CODE: [id number] CT LD LUNG CA SCREENING 33927 PROCEDURE INFORMATION: Exam: CT Chest For Lung Cancer Screening Without Contrast Exam date and time: 11/10/2021 1:45 PM Age: 71 years old Clinical indication: Screening exam; Personal history of tobacco use/personal history of nicotine dependence; Additional info: Z87.891, personal history of tobacco use. Personal histor Additional history: Asymptomatic patient meeting high-risk criteria for lung screening. Patient is not currently a smoker. There is a 150 pack-year history of smoking. Baseline. TECHNIQUE: Imaging protocol: CT Chest. Low-dose for lung cancer screening without contrast. 3D rendering (Not supervised by radiologist): MIP and/or 3D reconstructed images were created by the technologist. Radiation optimization: All CT scans at this facility use at least one of these dose optimization techniques: automated exposure control; mA and/or kV adjustment per patient size (includes targeted exams where dose is matched to clinical indication); or iterative reconstruction. COMPARISON: No relevant prior studies available. FINDINGS: Lungs: Mild emphysematous changes are present. There is no consolidation. The central airways are patent. Scattered pulmonary nodules as follows. Lung nodules: Nodule 1: Left lung. 3.2 mm solid nodule. Baseline. Series 4, image 91. Nodule 2: Right lung. 4.8 mm solid nodule. Baseline. Series 4, image 97. Nodule 3: Left lung. 3.5 mm solid nodule. Baseline. Series 4, image 102. Nodule 4: Right lung. 4.2 mm solid nodule. Baseline. Series 4, image 126. Nodule 5: Right lung. 6.4 mm solid, triangular shaped, perifissural nodule. Baseline. Series 4, image 143. Up to 5 most suspicious nodules are described. Pleural space: Unremarkable. No pneumothorax. No pleural effusion. Heart: There is severe atherosclerotic calcification of the coronary arteries. Aorta: The aorta demonstrates moderate atherosclerotic calcification. Approximate aortic diameters as follows: Ascending aorta at the level of RPA, 3.8 cm. Descending aorta, 2.9 cm. Distal arch, 3.4 cm. PAGE 1 Signed Report (CONTINUED) Name: MYRTLE DIAS [facility] : 1950 Age/S: 71 / F [address] [place] [employer], [place] [address]vd Unit #: [id number] Loc: [place] [address] Phys: Norris Archuleta MD Acct: [id number] Dis Date: Status: DEP CLI PHONE #: [phone] Exam Date: 11/10/2021 1344 FAX #: [phone] Reason: Z87.891, PERSONAL HISTORY OF TOBACCO USE. PERSO EXAMS: CPT CODE: [id number] CT LD LUNG CA SCREENING 18613 (Continued) Lymph nodes: Unremarkable. No enlarged lymph nodes. Bones/joints: Unremarkable. No acute fracture. Soft tissues: Unremarkable. IMPRESSION: 1. Subcentimeter pulmonary nodules. 2. Mild emphysema. 3. Atherosclerosis. 4. Severe coronary arterial calcifications. ASSESSMENT: Lung-RADS Score Assessment: Lung-RADS 2- Benign appearance or behavior. Nodules with a very low likelihood of becoming a clinically active cancer due to size or lack of growth. Less than 1% probability of malignancy. Continued annual screening with low dose CT in 12 months if patient continues to meet screening criteria. RESULT CODE: L2 FOLLOW UP: L12 at 1557 Reported and signed by: Jorge Espinoza M.D. CC: Norris Archuleta MD Technologist:Alcon Ray, RT(R)(CT) CTDI: DLP: Trnscb Date/Time: 11/11/2021 (1557) Maite Orig Print D/T: S: 11/11/2021 (2195) PAGE 2 Signed Report
[2022-08-20] MEDS ORDERED: ASPIRIN 325 MG TAB ONE (19:33)
[2022-08-20 19:43] LABS: Absolute Lymphocytes (CBC) 1.7 K/uL (0.7-4.9); Hematocrit 31.5 % (36.0-45.0); Lymphocytes % 27.2 % (15.3-44.8); MCV 77.5 fL (80-100); MPV 9.3 fL (7.6-11.3); RBC Red Blood Cell Count 4.06 M/uL (3.86-4.86)
[2022-08-20 19:57] LABS: Albumin 3.5 g/dL (3.4-5.0); Bilirubin Total 0.3 mg/dL (0.2-1.0); Potassium 3.7 mmol/L (3.5-5.1); Protein, Total 6.9 g/dL (6.4-8.2); Troponin High Sensitivity 10.9 pg/mL (<58.9)
--- NOTE | 2022-08-20 20:41 | RAD REPORT ---
EXAM DESCRIPTION: RAD - Chest Single View - 08/20/2022 8:34 pm CLINICAL HISTORY: CHEST PAIN Chest pain. COMPARISON: CHEST SINGLE VIEW dated 10/02/2014 FINDINGS: Portable technique limits examination quality. The lungs are grossly clear. The heart is mildly prominent in size. No displaced fractures.Aortic ath erosclerosis. IMPRESSION: No acute intrathoracic process suspected.
--- NOTE | 2022-08-20 20:55 | EDPHYS ---
Physician Documentation [facility] Name: Myrtle Dias Age: 72 yrs Sex: Female : 1950 Arrival Date: 08/20/2022 Time: 18:59 Bed 15 Private MD: Kofi [facility] ED Physician Jaswinder Odell HPI: 08/20 19:41 This 72 yrs old Unknown Female presents to ER via Ambulatory with complaints of Chest rt Pain, Back Pain, Near Syncope. 19:41 The patient or guardian reports chest pain that is located primarily in the substernal rt area. Onset: 7 hour(s) ago. The pain radiates to Presents to the ED with a burning chest pain rating to the back. Patient states that the symptoms started at rest about 7 hours ago. Patient states that her blood pressure typically runs high, with medicines at about 140. She states that she was concerned because it dropped to about 120, then to 96 today. She reports lightheadedness, nausea. She denies other acute complaints at this time. Symptoms do seem to be improving. They are moderate in severity, no other aggravating or alleviating factors. Patient states that she did have a chemical stress test about 1 week ago which she states is normal.. Historical: - Allergies: 19:11 Codeine; hb 19:11 Flagyl; hb 19:11 Vancomycin; hb - PMHx: 19:11 COPD; Hypertension; peripheral arterial disease; Hypercholesterolemia; GERD; Depressive hb disorder; - PSHx: 19:11 None; hb - Immunization history:: Adult Immunizations up to date, Client reports receiving the 2nd dose of the Covid vaccine, Last tetanus immunization: up to date. - Social history:: Smoking status: Patient/guardian denies using tobacco, but has a distant history of tobacco abuse. - Family history:: not pertinent. ROS: 19:41 Constitutional: Negative for fever, chills, and weight loss, Eyes: Negative for injury, rt pain, redness, and discharge, ENT: Negative for injury, pain, and discharge, Neck: Negative for injury, pain, and swelling, Respiratory: Negative for shortness of breath, cough, wheezing, and pleuritic chest pain, MS/Extremity: Negative for injury and deformity, Skin: Negative for injury, rash, and discoloration, Psych: Negative for depression, anxiety, suicide ideation, homicidal ideation, and hallucinations. 19:41 Cardiovascular: Positive for chest pain, Negative for edema. 19:41 Abdomen/GI: Positive for nausea, Negative for abdominal pain. 19:41 Back: Positive for pain at rest, Negative for injury or acute deformity. 19:41 Neuro: Positive for near syncope, Negative for altered mental status. Exam: 19:41 Constitutional: This is a well developed, well nourished patient who is awake, alert, rt and in no acute distress. Head/Face: Normocephalic, atraumatic. Eyes: Pupils equal round and reactive to light, extra-ocular motions intact. Lids and lashes normal. Conjunctiva and sclera are non-icteric and not injected. Cornea within normal limits. Periorbital areas with no swelling, redness, or edema. ENT: Nares patent. No nasal discharge, no septal abnormalities noted. Tympanic membranes are normal and external auditory canals are clear. Oropharynx with no redness, swelling, or masses, exudates, or evidence of obstruction, uvula midline. Mucous membranes moist. Neck: Trachea midline, no thyromegaly or masses palpated, and no cervical lymphadenopathy. Supple, full range of motion without nuchal rigidity, or vertebral point tenderness. No Meningismus. Chest/axilla: Normal chest wall appearance and motion. Nontender with no deformity. No lesions are appreciated. Cardiovascular: Regular rate and rhythm with a normal S1 and S2. No gallops, murmurs, or rubs. Normal PMI, no JVD. No pulse deficits. Respiratory: Lungs have equal breath sounds bilaterally, clear to auscultation and percussion. No rales, rhonchi or wheezes noted. No increased work of breathing, no retractions or nasal flaring. Abdomen/GI: Soft, non-tender, with normal bowel sounds. No distension or tympany. No guarding or rebound. No evidence of tenderness throughout. Skin: Warm, dry with normal turgor. Normal color with no rashes, no lesions, and no evidence of cellulitis. MS/ Extremity: Pulses equal, no cyanosis. Neurovascular intact. Full, normal range of motion. Neuro: Awake and alert, GCS 15, oriented to person, place, time, and situation. Cranial nerves II-XII grossly intact. Motor strength 5/5 in all extremities. Sensory grossly intact. Cerebellar exam normal. Normal gait. Psych: Awake, alert, with orientation to person, place and time. Behavior, mood, and affect are within normal limits. 19:41 ECG was reviewed by the Attending Physician. Vital Signs: 19:09 BP 145 / 61; Pulse 62; Resp 20; Temp 97.8; Pulse Ox 98% ; Weight 67.13 kg; Height 5 ft. hb 0 in. (152.40 cm); Pain 7/10; 19:20 BP 145 / 61; Pulse 61; Resp 14; Pulse Ox 97% on R/A; Pain 6/10; pf1 20:00 BP 157 / 60; Pulse 62; Resp 14; Pulse Ox 98% on R/A; Pain 0/10; pf1 21:00 BP 147 / 65; Pulse 60; Resp 18; Temp 98; Pulse Ox 97% on R/A; Pain 0/10; pf1 19:09 Body Mass Index 28.90 (67.13 kg, 152.40 cm) hb MDM: 19:21 Patient medically screened. rt 21:50 Differential diagnosis: acute myocardial infarction, acute pericarditis, anxiety, rt coronary artery disease chest wall pain, thoracic aortic disection. HEART Score: History: Moderately Suspicious (1), ECG: Normal (0), Age: > or = 65 years (2), Risk Factors: > or = 3 Risk factors for atherosclerotic disease (2), Troponin: < or = 1 x Normal Limit (0), Total Score = 4. Data reviewed: vital signs, nurses notes, lab test result(s), EKG, radiologic studies. ED course: Presents to the ED with nonspecific chest pain. Thoracic aortic dissection was considered, ever, patient has equal pulses, is not significantly hypertensive and has a normal mediastinum per my read on the chest x-ray. Patient unlikely to benefit from CT scanning. Labs reveal normal troponin. Patient is heart score 4, ever, she reports that she had a recent normal stress test, not likely to benefit from repeat. Symptoms have subsequently resolved in the ED. Patient is desirous of discharge, believe this is appropriate at this time. Is stable for outpatient care, return precautions discussed. 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 08/20 19:21 Order name: CBC with Diff; Complete Time: 20:00 rt 08/20 19:21 Order name: CMP; Complete Time: 20:00 rt 08/20 19:21 Order name: Chest Single View XRAY; Complete Time: 20:43 rt 08/20 18:21 Order name: Troponin High Sensitivity; Complete Time: 20:00 rt 08/20 19:21 Order name: BNP; Complete Time: 20:00 rt 08/20 19:21 Order name: Lipase; Complete Time: 20:00 rt 08/20 19:21 Order name: EKG; Complete Time: : rt 08/20 19:21 Order name: EKG - Nurse/Tech; Complete Time: 19:28 rt EC:41 Rate is 59 beats/min. Rhythm is regular, Sinus bradycardia with No ectopy. QRS Roundup is rt Normal. FL interval is normal. QRS interval is normal. QT interval is normal. No Q waves. T waves are Normal. No ST changes noted. Administered Medications: :25 Drug: Aspirin 325 mg Route: PO; pf1 20:01 Follow up: Response: No adverse reaction; Marked relief of symptoms; Pain is decreased; pf1 RASS: Alert and Calm (0) Disposition Summary: 08/20/22 20:54 Discharge Ordered Location: Home rt Problem: new rt Symptoms: are resolved rt Condition: Stable rt Diagnosis - Chest pain, unspecified rt Followup: rt - With: Private Physician - When: 2 - 3 days - Reason: Discharge Instructions: - Discharge Summary Sheet rt - Nonspecific Chest Pain, Adult rt Forms: - Medication Reconciliation Form rt - Thank You Letter rt - Antibiotic Education rt - Prescription Opioid Use rt Signatures: Dispatcher [employer] Annette Grant, DARIAN FARMER Jaswinder Odell MD MD rt Liz umana RN RN pf1
--- NOTE | 2022-08-20 20:55 | ER ---
Nurse's Notes [facility] Name: Myrtle Dias Age: 72 yrs Sex: Female : 1950 Arrival Date: 08/20/2022 Time: 18:59 Bed 15 Private MD: Mikal Kirby Diagnosis: Chest pain, unspecified Presentation: 08/20 19:09 Chief complaint: Patient states: midsternal CP/pressure radiating through to her upper hb middle back since 1200. Coronavirus screen: Vaccine status: Patient reports receiving the 2nd dose of the covid vaccine. Client denies travel out of the [place] in the last 14 days. Ebola Screen: Patient negative for fever greater than or equal to 101.5 degrees Fahrenheit, and additional compatible Ebola Virus Disease symptoms Patient denies exposure to infectious person. Patient denies travel to an Ebola-affected area in the 21 days before illness onset. Initial Sepsis Screen: Does the patient meet any 2 criteria? No. Patient's initial sepsis screen is negative. Does the patient have a suspected source of infection? No. Patient's initial sepsis screen is negative. Risk Assessment: Do you want to hurt yourself or someone else? Patient reports no desire to harm self or others. Onset of symptoms was August 20, 2022 at 12:00. 19:09 Method Of Arrival: Ambulatory hb 19:09 Acuity: DAVID 2 hb Triage Assessment: 19:11 General: Appears in no apparent distress. Behavior is calm, cooperative. Pain: hb Complains of pain in mid-sternal area Pain radiates to thoracic area Pain currently is 7 out of 10 on a pain scale. Quality of pain is described as pressure, Pain began noon. Cardiovascular: Reports chest pain, nausea, Rhythm is regular. Historical: - Allergies: 19:11 Codeine; hb 19:11 Flagyl; hb 19:11 Vancomycin; hb - PMHx: 19:11 COPD; Hypertension; peripheral arterial disease; Hypercholesterolemia; GERD; Depressive hb disorder; - PSHx: 19:11 None; hb - Immunization history:: Adult Immunizations up to date, Client reports receiving the 2nd dose of the Covid vaccine, Last tetanus immunization: up to date. - Social history:: Smoking status: Patient/guardian denies using tobacco, but has a distant history of tobacco abuse. - Family history:: not pertinent. Screenin:20 [facility] ED Fall Risk Assessment (Adult) History of falling in the last 3 months, pf1 including since admission No falls in past 3 months (0 pts) Confusion or Disorientation No (0 pts) Intoxicated or Sedated No (0 pts) Impaired Gait No (0 pts) Mobility Assist Device Used No (0 pt) Altered Elimination No (0 pt) Score/Fall Risk Level 0 - 2 = Low Risk Oriented to surroundings, Maintained a safe environment, Educated pt \T\ family on fall prevention, incl call for assistance when getting out of bed, Assessed \T\ reinforced patient's understanding of fall precautions, Provided non-skid footwear, Hourly rounding (assess needs \T\ fall precautionary measures) done, Used ambulatory aids as needed (educated on \T\ assisted with), Used gait belt as appropriate. 19:20 Abuse screen: Denies threats or abuse. pf1 19:20 Nutritional screening: No deficits noted. Tuberculosis screening: No symptoms or risk pf1 factors identified. Assessment: 19:20 General: Appears in no apparent distress. comfortable, well groomed, well developed, pf1 Behavior is calm, cooperative, appropriate for age, quiet. 19:20 Pain: Complains of pain in chest Pain currently is 6 out of 10 on a pain scale. Neuro: pf1 No deficits noted. Level of Consciousness is awake, alert, obeys commands, Oriented to person, place, time, situation. Cardiovascular: Chest pain quality is spasms began onset at 1200 today. Respiratory: No deficits noted. Airway is patent Trachea midline Respiratory effort is even, unlabored, Respiratory pattern is regular, symmetrical, Breath sounds are clear bilaterally. GI: No deficits noted. No signs and/or symptoms were reported involving the gastrointestinal system. : No deficits noted. No signs and/or symptoms were reported regarding the genitourinary system. EENT: No deficits noted. No signs and/or symptoms were reported regarding the EENT system. 20:00 Reassessment: Patient appears in no apparent distress at this time. Patient and/or pf1 family updated on plan of care and expected duration. Pain level reassessed. Patient is alert, oriented x 3, equal unlabored respirations, skin warm/dry/pink. Patient denies pain at this time. Patient states feeling better. Patient states symptoms have improved. Vital Signs: 19:09 BP 145 / 61; Pulse 62; Resp 20; Temp 97.8; Pulse Ox 98% ; Weight 67.13 kg; Height 5 ft. hb 0 in. (152.40 cm); Pain 7/10; 19:20 BP 145 / 61; Pulse 61; Resp 14; Pulse Ox 97% on R/A; Pain 6/10; pf1 20:00 BP 157 / 60; Pulse 62; Resp 14; Pulse Ox 98% on R/A; Pain 0/10; pf1 21:00 BP 147 / 65; Pulse 60; Resp 18; Temp 98; Pulse Ox 97% on R/A; Pain 0/10; pf1 19:09 Body Mass Index 28.90 (67.13 kg, 152.40 cm) hb ED Course: 18:59 Patient arrived in ED. am2 19:00 Mikal Kirby DO is Private Physician. am2 19:09 Jaswinder Odell MD is Attending Physician. rt 19:11 Triage completed. hb 19:11 Arm band placed on right wrist. Patient placed in an exam room, on a stretcher, on hb manager financial, on pulse oximetry. 19:15 Inserted saline lock: 20 gauge in right antecubital area, using aseptic technique. pf1 Blood collected. 19:20 Client placed on continuous cardiac and pulse oximetry monitoring. NIBP monitoring pf1 applied. butcher head on. 19:28 Liz umana, RN is Primary Nurse. pf1 19:30 Patient has correct armband on for positive identification. Placed in gown. Bed in low pf1 position. Call light in reach. 19:30 No provider procedures requiring assistance completed. Patient maintains SpO2 pf1 saturation greater than 95% on room air. 19:36 BNP Sent. pf1 19:36 Lipase Sent. pf1 19:36 Troponin High Sensitivity Sent. pf1 19:36 CMP Sent. pf1 19:36 CBC with Diff Sent. pf1 20:36 Chest Single View XRAY In Process Unspecified. EDMS 21:07 IV discontinued, intact, bleeding controlled, No redness/swelling at site. Pressure pf1 dressing applied. Administered Medications: 19:25 Drug: Aspirin 325 mg Route: PO; pf1 20:01 Follow up: Response: No adverse reaction; Marked relief of symptoms; Pain is decreased; pf1 RASS: Alert and Calm (0) Medication: 21:08 VIS not applicable for this client. pf1 Outcome: 20:54 Discharge ordered by . rt 21:07 Discharged to home ambulatory, with family. pf1 21:07 Condition: improved 21:07 Discharge instructions given to patient, Instructed on discharge instructions, follow up and referral plans. Demonstrated understanding of instructions, follow-up care. 21:08 Patient left the ED. pf1 Signatures: Dispatcher [employer] EDMS Annette Urbina RN RN Danielle Stone [facility] Jaswinder Odell MD MD rt Liz umana RN RN pf1
[2022-08-20 21:53] VITALS: BP 147/65; TEMP 98; O2SAT 97
--- NOTE | 2022-08-21 16:27 | EKG ---
Test Date: 2022-08-20 Test Time: 19:03:52 Lead Programmer: HB MEASUREMENT RESULTS: Intervals: Rate: 62 NE: 160 QRSD: 82 QT: 422 QTc: 428 [place]: P: 65 NE: 160 QRS: 61 T: 47 INTERPRETIVE STATEMENTS: Normal sinus rhythm Nonspecific ST abnormality Abnormal ECG Compared to ECG 05/24/2021 13:10:36 ST (T wave) deviation now present Sinus bradycardia no longer present Electronically Signed On 08-21-22 16:26:09 [employer] OFFICER by Kamar Dow
--- NOTE | 2022-08-21 16:27 | EKG ---
Test Date: 2022-08-20 Test Time: 19:04:18 Auto Hauler: HB MEASUREMENT RESULTS: Intervals: Rate: 59 ME: 160 QRSD: 80 QT: 426 QTc: 421 [place]: P: 67 ME: 160 QRS: 60 T: 49 INTERPRETIVE STATEMENTS: Sinus bradycardia Otherwise normal ECG Compared to ECG 08/20/2022 19:03:52 Sinus rhythm no longer present ST (T wave) deviation no longer present Electronically Signed On 08-21-22 16:26:07 PREPRESS MANAGER by Kamar Dow
== END 2022-08-20 21:08 | disposition home or self-care (01) ==
LOC: ER 18:56
DX: R07.89 Other chest pain (principal); I10 Essential (primary) hypertension; Z88.3 Allergy status to other anti-infective agents; Z88.5 Allergy status to narcotic agent
CPT/HCPCS: 36415; 71045; 80053; 83690; 83880; 84484; 85025; 93005; 99285

== ENCOUNTER 2024-05-09 13:15 | Inpatient (IN) | payer MEDICARE ==
[2024-05-09 13:43] LABS: Absolute Basophils 0.1 K/uL (0-0.5); Absolute Eosinophils 0.3 K/uL (0-0.5); Absolute Lymphocytes (CBC) 2.7 K/uL (0.7-4.9); Absolute Monocytes 1.1 K/uL (0.1-1.3); Eosinophils % 2.2 % (0-4.4); Hematocrit 31.9 % (36.0-45.0); Hemoglobin 10.1 g/dL (12.0-15.0); Lymphocytes % 22.1 % (15.3-44.8); MCH 25.2 pg (27.0-35.0); MCHC 31.7 g/dL (32.0-36.0); MCV 79.3 fL (80-100); MPV 8.9 fL (7.6-11.3); Monocytes % 9.3 % (3.3-12.3); Neutrophils % 65.4 % (41.7-73.7); Platelets 593 thou/uL (152-406); RBC Red Blood Cell Count 4.03 M/uL (3.86-4.86); Red Cell Distribution Width 13.4 % (12.1-15.2)
[2024-05-09 14:08] LABS: ALT/SGPT 22 U/L (13-56); AST/SGOT 16 U/L (15-37); Albumin 2.4 g/dL (3.4-5.0); Albumin/Globulin Ratio 0.5 (1.1-1.8); Alkaline Phosphatase 169 U/L (45-117); Anion Gap 5.2 mEq/L (5.0-15.0); BUN Blood Urea Nitrogen 37 mg/dL (7-18); Bicarbonate 28 mEq/L (21-32); Bilirubin Total 0.4 mg/dL (0.2-1.0); Globulin 4.8 g/dL (2.3-3.5); Glomerular Filtration Rate 34 ml/min (=/>90); Glucose Level 105 mg/dL (74-106); Magnesium 2.2 mg/dL (1.6-2.4); NT PRO-BNP 1335 pg/mL (<450); Potassium 3.2 mEq/L (3.5-5.1); Protein, Total 7.2 g/dL (6.4-8.2); Sodium Level 133 mEq/L (136-145); Troponin High Sensitivity 9.9 pg/mL (<58.9)
[2024-05-09 14:09] LABS: Bilirubin Direct < 0.2 mg/dL (0-0.2); Bilirubin Indirect, Calculated 0.2 mg/dL (0.2-0.8)
--- NOTE | 2024-05-09 14:57 | RAD REPORT ---
Procedure: Chest Single View History: SOB Comparison: August 2023 Moderate bilateral alveolar opacities left lung.. Right lung appears clear of acute infiltrate. No significant pleural effusion noted. The heart is normal size. IMPRESSION: Moderate alveolar opacities left lung may indicate pneumonia. This should be followed until has clear ed to exclude a postobstructive process/underlying mass
[2024-05-09] MEDS ORDERED: NA CHLORIDE 0.9% 1,000 ML ONE ×2 (15:47→17:48)
[2024-05-09] MEDS ORDERED: Levofloxacin 750mg IV 750 MG/150 ML BAG IV ONE (15:47)
[2024-05-09 15:57] LABS: PT Prothrombin Time 13.7 SECONDS (9.4-12.5); PTT, Activated Partial Thromb 26.7 SECONDS (24.3-36.9); Protime INR 1.23
--- NOTE | 2024-05-09 16:06 | ER ---
Nurse's Notes [facility] Name: Myrtle Dias Age: 73 yrs Sex: Female : 1950 Arrival Date: 05/09/2024 Time: 13:15 Bed 19 Private MD: Diagnosis: Community-acquired pneumonia;Hypoxia Presentation: 05/09 13:28 Chief complaint: EMS states: "toned out for SOB for the past week while at urgent care. mb9 Oxygen levels were in the low 80s. pt placed on 5 liters NC, SPO2 increased to 95%. Gave breathing treatment, 125 mg of Solu-Medrol, and 324 mg of Aspirin.". Coronavirus screen: Vaccine status: Patient reports receiving the 2nd dose of the covid vaccine. Ebola Screen: No symptoms or risks identified at this time. Initial Sepsis Screen: Does the patient meet any 2 criteria? No. Patient's initial sepsis screen is negative. Does the patient have a suspected source of infection? No. Patient's initial sepsis screen is negative. Risk Assessment: Do you want to hurt yourself or someone else? Patient reports no desire to harm self or others. Onset of symptoms was 2023. 13:28 Acuity: DAVID 2 mb9 13:28 Method Of Arrival: EMS: [facility] mb9 Triage Assessment: 13:31 General: Appears in no apparent distress. Behavior is calm, cooperative. Pain: mb9 Complains of pain in chest Quality of pain is described as dull, Pain began gradually, Is intermittent, Aggravated by inspiration. EENT: No signs and/or symptoms were reported regarding the EENT system. Neuro: Head Agitation-Sedation Scale (RASS): 0 - Alert and Calm Level of Consciousness is awake, alert, obeys commands, Oriented to person, place, time, situation, Appropriate for age. Cardiovascular: Heart tones S1 S2 present Patient's skin is warm and dry. Respiratory: Reports shortness of breath at rest Airway is patent Respiratory effort is even, unlabored, Respiratory pattern is regular, symmetrical, Breath sounds are diminished in left posterior lower lobe and right posterior lower lobe Onset: The symptoms/episode began/occurred gradually. Respiratory: the patient has mild shortness of breath. GI: Abdomen is flat, non-distended. : No signs and/or symptoms were reported regarding the genitourinary system. Derm: Skin is pink, warm \\T\\ dry. Musculoskeletal: Range of motion: intact in all extremities. Historical: - Allergies: 13:30 Codeine; mb9 13:30 Flagyl; mb9 13:30 Vancomycin; mb9 - PMHx: 13:30 COPD; depressive disorder; GERD; Hypercholesterolemia; Hypertension; peripheral mb9 arterial disease; Stage 4 kidney cancer; stage 3 CKD; - PSHx: 13:44 Appendectomy; Total abdominal hysterectomy; Tonsillectomy; mb9 - Immunization history:: Adult Immunizations up to date. - Infectious Disease History:: Denies. - Social history:: Smoking status: Patient/guardian denies using tobacco, the patient reports quitting approximately 4 years ago. - Family history:: not pertinent. Screenin:32 [facility] ED Fall Risk Assessment (Adult) History of falling in the last 3 months, mb9 including since admission No falls in past 3 months (0 pts) Confusion or Disorientation No (0 pts) Intoxicated or Sedated No (0 pts) Impaired Gait No (0 pts) Mobility Assist Device Used No (0 pt) Altered Elimination No (0 pt) Score/Fall Risk Level 0 - 2 = Low Risk Oriented to surroundings, Maintained a safe environment, Educated pt \\T\\ family on fall prevention, incl call for assistance when getting out of bed. Abuse screen: Denies threats or abuse. Nutritional screening: No deficits noted. Tuberculosis screening: No symptoms or risk factors identified. Assessment: 13:39 Reassessment: see triage assessment. mb9 13:42 Reassessment: Oxygen turned off. SPO2 85% on RA. Pt placed on 2 L NC, SPO2 increased to mb9 94%. 14:58 Reassessment: No changes from previously documented assessment. Patient and/or family mb9 updated on plan of care and expected duration. Pain level reassessed. Patient is alert, oriented x 3, equal unlabored respirations, skin warm/dry/pink. 16:07 Reassessment: Patient and/or family updated on plan of care and expected duration. Pain mb9 level reassessed. Patient is alert, oriented x 3, equal unlabored respirations, skin warm/dry/pink. Patient states feeling better. Patient states symptoms have improved. 16:07 Reassessment: Acetylcysteine IV 600 mg faxed to pharmacy. mb9 17:06 Reassessment: No changes from previously documented assessment. Patient and/or family mb9 updated on plan of care and expected duration. Pain level reassessed. Patient is alert, oriented x 3, equal unlabored respirations, skin warm/dry/pink. 18:15 Reassessment: Patient appears in no apparent distress at this time. No changes from mb9 previously documented assessment. Patient states feeling better. Patient states symptoms have improved. Vital Signs: 13:28 BP 175 / 74; Pulse 69; Resp 18; Temp 98; Pulse Ox 96% on 2 lpm NC; Weight 61.23 kg; mb9 Height 5 ft. 0 in. ; Pain 0/10; 14:10 BP 129 / 59; Pulse 73; Resp 18; Pulse Ox 96% on 2 lpm NC; mb9 15:08 BP 149 / 73; Pulse 70; Resp 18; Pulse Ox 93% on 2 lpm NC; mb9 17:06 BP 159 / 58; Pulse 72; Resp 18; Pulse Ox 97% on 2 lpm NC; mb9 18:15 BP 104 / 68; Pulse 78; Resp 18; Temp 98.2(O); Pulse Ox 94% on 2 lpm NC; mb9 13:28 Body Mass Index 26.37 (61.23 kg, 152.4 cm) mb9 13:28 Pain Scale: Adult mb9 ED Course: 13:26 Patient arrived in ED. rt 13:26 Jaswinder Odell MD is Attending Physician. rt 13:27 Brenda Espana, DARIAN is Primary Nurse. mb9 13:30 Triage completed. mb9 13:30 Arm band placed on. mb9 13:32 Placed in gown. Bed in low position. Provided Education on: press call light if needing mb9 anything. Client placed on continuous cardiac and pulse oximetry monitoring. NIBP monitoring applied. caddy/caddie supervisor on. 13:32 Initial lab(s) drawn, by me, sent to lab. EKG done, by ED staff, reviewed by Jaswinder Odell MD. Maintain EMS IV. Dressing intact. Good blood return noted. Site clean \\T\\ dry. Gauge \\T\\ site: 18 g right AC. Flushed with 10 mL NS. 13:39 No provider procedures requiring assistance completed. mb9 13:40 Basic Metabolic Panel Sent. mb9 13:40 CBC with Diff Sent. mb9 13:40 LFT's Sent. mb9 13:40 Magnesium Sent. mb9 13:40 NT PRO-BNP Sent. mb9 13:40 Troponin HS Sent. mb9 14:38 XRAY Chest (1 view) In Process Unspecified. EDMS 15:20 First set of blood cultures drawn by me. zm 15:35 Initial lab(s) drawn, by me, sent to lab. Inserted saline lock: 20 gauge in left wrist, zm using aseptic technique. Blood collected. Flushed with 10 mL NS. 15:35 Second set of blood cultures drawn by me. zm 15:38 Protime (+inr) Sent. zm 15:38 Ptt, Activated Sent. zm 15:38 Lactate w/ 2H reflex if indic. Sent. zm 15:38 Blood Culture Adult (2) Sent. zm 16:05 Eulalio Paz MD is Hospitalizing Provider. rt 16:42 CT Chest For PE Angio In Process Unspecified. EDMS 17:06 Patient admitted, IV remains in place. mb9 18:24 824 CM met with and her sister Mounika, at the bedside in the ED exam room. ane Patient identified by name and . Demographic sheet confirmed. Patient states she lives alone in a single story home. She reports that prior to admission, she performs ADLs independently, stating " I really am quite functional, 73 isn't what it used to be." No DME in the household with the exception of a nebulizer for which she states " I haven't used in years". MPOA is in place and patient states her preferred plan is to return home upon discharge and states Mounika is available to transport her home. CM team will continue to follow and coordinate care during this hospital stay. Administered Medications: 15:53 Drug: NS 0.9% IV 1000 ml IV at 1 bolus Per protocol; 1000 mL bolus Route: IV; Rate: 1 mb9 bolus; Site: left forearm; 17:06 Follow up: Response: No adverse reaction; IV Status: Completed infusion mb9 15:53 Drug: LevaQUIN IVPB 750 mg IVPB once Route: IVPB; Site: left forearm; mb9 18:15 Follow up: Response: No adverse reaction; IV Status: Completed infusion mb9 17:05 Drug: Acetylcysteine IV 600 mg IV at calculated rate once Route: IV; Rate: calculated mb9 rate; Site: right antecubital; 18:14 Follow up: Response: No adverse reaction; IV Status: Completed infusion mb9 Medication: 13:32 VIS not applicable for this client. mb9 Outcome: 16:05 Decision to Hospitalize by Provider. rt 18:15 Admitted to Med/surg accompanied by nurse, via wheelchair, room 207, with oxygen, with mb9 chart, 18:15 Condition: stable 18:15 Instructed on the need for admit, 18:39 Patient left the ED. mb9 Signatures: Dispatcher [employer] Caren Schrader Mary Beth, RN RN mb9 Jaswinder Odell MD MD rt Jaylin Carlos RN RN ane Corrections: (The following items were deleted from the chart) 13:45 13:30 PSHx: None; mb9 mb9
--- NOTE | 2024-05-09 16:06 | EDPHYS ---
Physician Documentation [facility] Name: Myrtle Dias Age: 73 yrs Sex: Female : 1950 Arrival Date: 05/09/2024 Time: 13:15 Bed 19 Private MD: ED Physician Jaswinder Odell HPI: 05/09 14:38 This 73 yrs old Female presents to ER via EMS with complaints of Shortness Of Breath. rt 14:38 Patient with history of COPD presents to the ED with dyspnea for about a week. Patient rt went to an urgent care today as her breathing has worsened. The patient was noted to have an oxygen saturation in the low 80s on room air. No baseline oxygen requirement. She was given a DuoNeb, 3 and 1 treatment by EMS as well as Solu-Medrol. States that the breathing has improved but is not back to baseline. Denies other acute complaints at this time, symptoms are moderate in severity, no other aggravating or alleviating factors.. Historical: - Allergies: 13:30 Codeine; mb9 13:30 Flagyl; mb9 13:30 Vancomycin; mb9 - PMHx: 13:30 COPD; depressive disorder; GERD; Hypercholesterolemia; Hypertension; peripheral mb9 arterial disease; Stage 4 kidney cancer; stage 3 CKD; - PSHx: 13:44 Appendectomy; Total abdominal hysterectomy; Tonsillectomy; mb9 - Immunization history:: Adult Immunizations up to date. - Infectious Disease History:: Denies. - Social history:: Smoking status: Patient/guardian denies using tobacco, the patient reports quitting approximately 4 years ago. - Family history:: not pertinent. ROS: 14:38 Constitutional: Negative for fever, chills, and weight loss, Cardiovascular: Negative rt for chest pain, palpitations, and edema, Abdomen/GI: Negative for abdominal pain, nausea, vomiting, diarrhea, and constipation, MS/Extremity: Negative for injury and deformity, Skin: Negative for injury, rash, and discoloration, Neuro: Negative for headache, weakness, numbness, tingling, and seizure, 14:38 Respiratory: Positive for cough, shortness of breath, wheezing, Exam: 14:38 Constitutional: This is a well developed, well nourished patient who is awake, alert, rt and in no acute distress. Head/Face: Normocephalic, atraumatic. Chest/axilla: Normal chest wall appearance and motion. Nontender with no deformity. No lesions are appreciated. Cardiovascular: Regular rate and rhythm with a normal S1 and S2. No gallops, murmurs, or rubs. Normal PMI, no JVD. No pulse deficits. Abdomen/GI: Soft, non-tender, with normal bowel sounds. No distension or tympany. No guarding or rebound. No evidence of tenderness throughout. MS/ Extremity: Pulses equal, no cyanosis. Neurovascular intact. Full, normal range of motion. Neuro: Awake and alert, GCS 15, oriented to person, place, time, and situation. Cranial nerves II-XII grossly intact. Motor strength 5/5 in all extremities. Sensory grossly intact. Cerebellar exam normal. Normal gait. 14:38 ECG was reviewed by the Attending Physician. 14:38 Respiratory: Coarse, slightly diminished breath sounds diffusely, worse on the left compared to the right, Vital Signs: 13:28 BP 175 / 74; Pulse 69; Resp 18; Temp 98; Pulse Ox 96% on 2 lpm NC; Weight 61.23 kg; mb9 Height 5 ft. 0 in. ; Pain 0/10; 14:10 BP 129 / 59; Pulse 73; Resp 18; Pulse Ox 96% on 2 lpm NC; mb9 15:08 BP 149 / 73; Pulse 70; Resp 18; Pulse Ox 93% on 2 lpm NC; mb9 17:06 BP 159 / 58; Pulse 72; Resp 18; Pulse Ox 97% on 2 lpm NC; mb9 18:15 BP 104 / 68; Pulse 78; Resp 18; Temp 98.2(O); Pulse Ox 94% on 2 lpm NC; mb9 13:28 Body Mass Index 26.37 (61.23 kg, 152.4 cm) mb9 13:28 Pain Scale: Adult mb9 MDM: 13:26 Patient medically screened. rt 16:07 Differential diagnosis: Pneumonia, COPD, CHF. Data reviewed: vital signs, nurses notes, rt lab test result(s), EKG, radiologic studies. Consideration of Admission/Observation Patient was admitted/placed on observation. Management of patient was discussed with the following: Hospitalist: Agrees to admit. I considered the following discharge prescriptions or medication management in the emergency department Medications were administered in the Emergency Department. See MAR. Independent interpretation of the following test(s) in the Emergency Department X-Ray: My interpretation is Pneumonia seen on my interpretation of x-ray images. Test considered but Not performed: CT: Low suspicion for pneumonia, CT angiogram not indicated. Care significantly affected by the following chronic conditions: Chronic Obstructive Pulmonary Disease. Counseling: I had a detailed discussion with the patient and/or guardian regarding the historical points, exam findings, and any diagnostic results supporting the discharge/admit diagnosis, lab results, radiology results, the need for further work-up and treatment in the hospital. Response to treatment: the patient's symptoms have markedly improved after treatment. 05/09 13:27 Order name: Basic Metabolic Panel; Complete Time: 14:11 rt 05/09 13:27 Order name: CBC with Diff; Complete Time: 14:11 rt 05/09 13:27 Order name: LFT's; Complete Time: 14:11 rt 05/09 13:27 Order name: Magnesium; Complete Time: 14:11 rt 05/09 13:27 Order name: NT PRO-BNP; Complete Time: 14:11 rt 05/09 13:27 Order name: Troponin HS; Complete Time: 14:11 rt 05/09 15:13 Order name: Blood Culture Adult (2) [facility] 05/09 15:13 Order name: Lactate w/ 2H reflex if indic.; Complete Time: 16:04 9 05/09 15:26 Order name: Protime (+inr); Complete Time: 15:58 rt 05/09 15:26 Order name: Ptt, Activated; Complete Time: 15:58 rt 05/09 17:43 Order name: Comprehensive Metabolic Panel [facility] 05/09 17:43 Order name: CBC with Automated Diff [facility] 05/09 17:43 Order name: CBC with Automated Diff [facility] 05/09 17:43 Order name: Lipid Profile [facility] 05/09 17:43 Order name: Lipid Profile [facility] 05/09 17:43 Order name: Magnesium [facility] 05/09 17:43 Order name: Magnesium [facility] 05/09 17:43 Order name: Thyroid Stimulating Hormone [facility] 05/09 17:43 Order name: Thyroid Stimulating Hormone [facility] 05/09 13:27 Order name: XRAY Chest (1 view); Complete Time: 14:58 rt 05/09 15:58 Order name: CT Chest For PE Angio; Complete Time: 17:00 snw 05/09 13:27 Order name: EKG; Complete Time: 13:28 rt 05/09 17:43 Order name: CONS Physician Consult EDMS 05/09 13:27 Order name: Cardiac monitoring; Complete Time: 13:40 rt 05/09 13:27 Order name: EKG - Nurse/Tech; Complete Time: 13:40 rt 05/09 13:27 Order name: IV Saline Lock; Complete Time: 13:40 rt 05/09 13:27 Order name: Labs collected and sent; Complete Time: 13:40 rt 05/09 13:27 Order name: O2 Per Protocol; Complete Time: 13:40 rt 05/09 13:27 Order name: O2 Sat Monitoring; Complete Time: 13:40 rt 05/09 15:26 Order name: Accucheck; Complete Time: 15:44 rt 05/09 15:26 Order name: IV Saline Lock - Large Bore; Complete Time: 15:38 rt 05/09 15:26 Order name: Vital Signs; Complete Time: 15:44 rt EC:38 Rate is 70 beats/min. Rhythm is regular, Normal Sinus Rhythm with No ectopy. QRS [place] rt is Normal. NV interval is normal. QRS interval is normal. QT interval is normal. No Q waves. T waves are Normal. No ST changes noted. Interpreted by me. Administered Medications: 15:53 Drug: NS 0.9% IV 1000 ml IV at 1 bolus Per protocol; 1000 mL bolus Route: IV; Rate: 1 mb9 bolus; Site: left forearm; 17:06 Follow up: Response: No adverse reaction; IV Status: Completed infusion mb9 15:53 Drug: LevaQUIN IVPB 750 mg IVPB once Route: IVPB; Site: left forearm; mb9 18:15 Follow up: Response: No adverse reaction; IV Status: Completed infusion mb9 17:05 Drug: Acetylcysteine IV 600 mg IV at calculated rate once Route: IV; Rate: calculated mb9 rate; Site: right antecubital; 18:14 Follow up: Response: No adverse reaction; IV Status: Completed infusion mb9 Disposition: 16:07 Critical Care:. rt Disposition Summary: 05/09/24 16:05 Hospitalization Ordered Notes: Hospitalization Status: Inpatient Admission rt Provider: Eulalio Paz rt Location: Telemetry/MedSurg (Inpatient) rt Condition: Fair rt Problem: new rt Symptoms: have improved rt Bed/Room Type: Standard rt Room Assignment: 207(05/09/24 18:02) em1 Diagnosis - Community-acquired pneumonia rt - Hypoxia rt Forms: - Medication Reconciliation Form rt - SBAR form rt - Leadership Thank You Letter rt Critical care time excluding procedures: 16:07 Critical care time: Bedside Care: 30 minutes, Consultation: 5 minutes. Total time: 35 rt minutes Signatures: Dispatcher [employer] EDMS Monica Velazquez FNP-C LEGAL CASHIER-Csnw Hubert Moctezuma em1 Brenda Espana RN RN mb9 Jaswinder Odell MD MD rt Corrections: (The following items were deleted from the chart) 13:45 13:30 PSHx: None; mb9 mb9 15:26 15:26 PROTIME (+INR)+COAG.LAB.BRZ ordered. EDMS EDMS 15:26 15:26 PTT, ACTIVATED+COAG.LAB.BRZ ordered. EDMS EDMS 18:02 16:05 rt em1
--- NOTE | 2024-05-09 16:59 | RAD REPORT ---
EXAM: Chest For Pe Angio CLINICAL HISTORY: Shortness of breath COMPARISON: March 2024 TECHNIQUE: Thin axial CT images of the chest were obtained following administration of 100 mL Isovue 370 IV contrast. Multiplanar reconstructions, and 3-D maximum intensity projection reconstructions were generated and reviewed. Exam utilizes a protocol for optimal evaluation of pulmonary arterial tree. All CT scans are performed using dose optimization technique as appropriate and may include automated exposure control or mA/KV adjustment according to patient size. FINDINGS: A pulmonary embolus is not seen No thoracic aortic aneurysm. Minimal left pleural effusion. A pericardial effusion not noted. Moderate patchy alveolar opacities. Left lung Mild alveolar opacities right lung. IMPRESSION: Negative for pulmonary embolism Moderate left and mild right pulmonary opacities probably pneumonia
[2024-05-09] MEDS: ACETYLCYSTEINE IV SCH (17:00)
[2024-05-09] MEDS: D5W IV SCH (17:00)
--- NOTE | 2024-05-09 17:02 | P.HP ---
Certification for Inpatient Patient admitted to: Inpatient With expected LOS: >2 Midnights Patient will require the following post-hospital care: None Practitioner: I am a practitioner with admitting privileges, knowledge of patient current condition, hospital course, and medical plan of care. Services: Services provided to patient in accordance with Admission requirements found in Title 42 Section 412.3 of the Code of Federal Regulations <Monica Velazquez Abhishek - Last Filed: 05/09/24 17:46> Patient History Date of Service: 05/09/24 Reason for admission: CAP, COPD exacerbation, and CKD History of Present Illness: Ms. Dias is a 73-year-old female with a past medical history of hypertension, hyperlipidemia, chronic stage III kidney disease status post stage IV renal cell resection, and COPD who presented to the emergency department via EMS status post 5 to 7 days of increasing shortness of breath. She denies fever, nausea, vomiting, or chest pain. Home medications for COPD including anoro. She states she thought her symptoms were in response to exposure to a significant allergen. EMS was toned out for significant shortness of breath and initial sat's were 80% on room air. She was given a small fluid bolus, Solu- Medrol 125 mg, neb treatments, and Levaquin. She is feeling significantly better. Chest x-ray shows pneumonia with concern for post obstructive process. CT PE protocol was obtained to rule out PE and acetylcysteine 600 mg was administered for renal protection secondary to contrast. She will be admitted for further evaluation and treatment of bilateral pneumonia (negative for PE). Home medications list reviewed: Yes - Past Medical/Surgical History Has patient received pneumonia vaccine in the past: No -: Renal cell carcinoma -: COPD -: Hypertension -: Hyperlipidemia -: CKD -: Depression -: Partial nephrectomy -: Appendectomy -: Hysterectomy -: Bilateral shoulder surgery -: bilateral feet Psychosocial/ Personal History: Lives in an apartment with her sister. No oxygen or assistive devices - Family History Family History: Reviewed- Non-Contributory - Social History Smoking Status: Former smoker Smoking therapy provided: No (Patient quit smoking in 2011) Alcohol use: No CD- Drugs: No Caffeine use: Yes Place of Residence: Home <Alix Velaqzuezgilbert Weiss - Last Filed: 05/09/24 17:46> Date of Service: 05/09/24 <Eulalio Paz - Last Filed: 05/09/24 18:13> Allergies codeine Allergy (Severe, Verified 09/11/23 09:31) Vomiting metronidazole [From Flagyl] Allergy (Severe, Verified 09/11/23 09:31) Hives vancomycin Allergy (Severe, Verified 09/11/23 09:31) Hives adhesive tape Allergy (Verified 09/11/23 09:31) Blister latex Allergy (Verified 09/11/23 09:31) Blister Home Medications: Albuterol Inhaler [Ventolin Inhaler] 2 puff IH Q6H PRN 05/24/21 Citalopram [Celexa] 10 mg PO DAILY 05/24/21 Famotidine [Pepcid] 20 mg PO DAILY 05/24/21 Magnesium Oxide [Magnesium] 250 mg PO DAILY 05/24/21 Telmisartan 80 mg PO DAILY 05/24/21 Umeclidinium Brm/Vilanterol Tr [Anoro Ellipta 62.5-25 Mcg INH] 1 each IH DAILY 05/24/21 Evolocumab [Repatha Syringe] 140 mg SQ SEECOM 09/11/23 Hydralazine [Apresoline] 25 mg PO TID PRN 09/11/23 NIFEdipine [Nifedipine ER] 30 mg PO BEDTIME 09/11/23 cloNIDine HCL [Clonidine HCl] 0.1 mg PO TIDP PRN 09/11/23 Review of Systems 10-point ROS is otherwise unremarkable General: As per HPI Respiratory: Cough, Shortness of Breath Cardiovascular: Unremarkable Gastrointestinal: Unremarkable Genitourinary: Unremarkable Musculoskeletal: Unremarkable Integumentary: Unremarkable Neurological: Unremarkable Lymphatics: Unremarkable <Monica Velazquez Abhishek - Last Filed: 05/09/24 17:46> Physical Examination - Physical Exam General: Alert, In no apparent distress, Oriented x3 HEENT: Atraumatic, Normocephalic Neck: Supple Respiratory: Normal air movement, Other (SpO2 91 to 96% on room air on arrival back from CT) Cardiovascular: No edema, Normal pulses, Regular rate/rhythm Capillary refill: <2 Seconds Gastrointestinal: Soft and benign Musculoskeletal: No clubbing Integumentary: No rashes Neurological: Normal speech, Normal tone, Normal affect Lymphatics: No axilla or inguinal lymphadenopathy External genitalia: Deferred Rectal: Deferred - Studies Laboratory Data (last 24 hrs) 05/09/24 05/09/24 05/09/24 15:35 13:34 13:34 WBC 12.30 H Hgb 10.1 L Hct 31.9 L Plt Count 593 H PT 13.7 H INR 1.23 APTT 26.7 Sodium 133 L Potassium 3.2 L BUN 37 H Creatinine 1.59 H Glucose 105 Magnesium 2.2 Total Bilirubin 0.4 AST 16 ALT 22 Alkaline Phosphatase 169 H <Monica Velazquez - Last Filed: 05/09/24 17:46> - Studies Laboratory Data (last 24 hrs) 05/09/24 05/09/24 05/09/24 15:35 13:34 13:34 WBC 12.30 H Hgb 10.1 L Hct 31.9 L Plt Count 593 H PT 13.7 H INR 1.23 APTT 26.7 Sodium 133 L Potassium 3.2 L BUN 37 H Creatinine 1.59 H Glucose 105 Magnesium 2.2 Total Bilirubin 0.4 AST 16 ALT 22 Alkaline Phosphatase 169 H <Eulalio Paz - Last Filed: 05/09/24 18:13> Assessment and Plan - Plan Acute hypoxic respiratory failure secondary to CAP and COPD COPD exacerbation Patient's respiratory status has stabilized. Patient still requiring O2. Patient denies fever, chills, or tremors. Plan: 1. Continue IV antibiotics (Rocephin and Zithromax) 2. blood cultures 3. Repeat chest x-ray as needed 4. CT scanning of the chest if pneumonia is not improved to evaluate for postobstructive pneumonia done-negative for mass, negative PE 5. Respiratory isolation not needed 6. Neb treatments every 6 hours scheduled 7. O2 per protocol 8. Continue with gentle hydration 9. Monitor and trend labs including CBC, CMP, and lactate as needed Hypertension with CKD Hyperlipidemia Normally on telmisartan HCTZ, will give telmisartan, hold HCTZ Hydralazine 10 mg IV every 6 hours as needed as SBP greater than [address] Braun Patient takes Repatha GI and DVT prophylaxis Discharge Plan: Home Plan to discharge in: Greater than 2 days - Advance Directives Does patient have a Living Will: No Does patient have a Durable POA for Healthcare: Yes <Monica Velazquez - Last Filed: 05/09/24 17:46> - Plan Pt seen and examined. I agree with the note by the GRANULATOR. Pt is a 73 yo female with past medical history of COPD, depression, GERD, Htn, PAD, Renal cell cancer and CKD stage 3 who presents with shortness of breath. The symptom started last week and progressively worsened to the extent that pt went to urgent care center where his oxygen saturation was noticed to be 80% on room air. Pt was sent to the ER for treatment. On admission, pt received solumedrol and duoneb. Lab studies show wbc 12.3, Hgb 10.1, K 3.2, Cr 1.59, Alk phos 169 and BNP 1335. CXR shows left lung pneumonia. At bedside, pt is in NAD. A/P: Acute COPD exacerbation: Will continue solumedrol, abx, duoneb, oxygen and mucinex. Consult Pulm. CAP: CXR shows left lung pneumonia. Will continue iv rocephin/azithro and f/u blood cx. Hypokalemia: k is 3.2. Will replete and monitor. Elevated BNP: BNP is 1335. Will f/u Echo to r/o CHF. Htn: Continue home med CKD, stage 3: Cr is 1.59. Will avoid nephrotoxins and monitor renal function. DVT ppx: SCD Code: full <Eulalio Paz - Last Filed: 05/09/24 18:13>
[2024-05-09] MEDS ORDERED: ACETAMINOPHEN 500 MG TAB PO PRN (17:33)
[2024-05-09] MEDS ORDERED: SODIUM CHLORIDE 0.9% 10ML INJ IV PRN (17:43)
[2024-05-09] MEDS: NA CHLORIDE 0.9% 1,000 ML IV SCH (17:51)
[2024-05-09 17:59] VITALS: BMI 26.4
[2024-05-09] MEDS ORDERED: CEFTRIAXONE 1,000 MG in NA CHLORIDE 0.9% 50 ML IVPB SCH (18:00)
[2024-05-09] MEDS: POTASSIUM CL SA 10 MEQ TAB PO ONE (18:13)
[2024-05-09] MEDS ORDERED: POTASSIUM CL SA 10 MEQ TAB PO ONE (18:15)
[2024-05-09 18:25] LABS: Albumin/Globulin Ratio 0.5 (1.1-1.8); Bilirubin Total 0.3 mg/dL (0.2-1.0); Globulin 4.3 g/dL (2.3-3.5); Protein, Total 6.3 g/dL (6.4-8.2)
[2024-05-09] MEDS: IPRATROPIUM BROM 0.5MG/2.5ML NEB SCH (20:31)
[2024-05-10] MEDS: HEPARIN 5000 UNIT/ML 1 ML VIAL SQ SCH (00:34)
[2024-05-10 05:01] LABS: Absolute Lymphocytes (CBC) 0.5 K/uL (0.7-4.9); Absolute Monocytes 0.1 K/uL (0.1-1.3); Absolute Neutrophil 5.8 K/uL (1.8-8.0); Basophils % 0.1 % (0-1.3); Hematocrit 27.1 % (36.0-45.0); Hemoglobin 8.9 g/dL (12.0-15.0); Lymphocytes % 7.3 % (15.3-44.8); MCH 26.1 pg (27.0-35.0); MCHC 32.8 g/dL (32.0-36.0); MCV 79.4 fL (80-100); MPV 8.8 fL (7.6-11.3); Monocytes % 1.5 % (3.3-12.3); Neutrophils % 91.1 % (41.7-73.7); Platelets 504 thou/uL (152-406); RBC Red Blood Cell Count 3.42 M/uL (3.86-4.86); Red Cell Distribution Width 13.1 % (12.1-15.2)
[2024-05-10 05:15] LABS: Magnesium 2.2 mg/dL (1.6-2.4); Thyroid Stimulating Hormone 0.248 uIU/mL (0.358-3.740)
[2024-05-10 05:27] LABS: Band Neutrophils 8 % (0-1); Differential Total Cells Count 100; Lymphocytes 7 % (15-42); Monocytes 1 % (0-10); Segmented Neutrophils 84 % (40-80)
[2024-05-10 05:28] LABS: Blood Morphology Comment NOT SEEN (NOT SEEN); Platelet Estimate INCR
[2024-05-10] MEDS: CEFTRIAXONE 1,000 MG in NA CHLORIDE 0.9% 50 ML IVPB SCH (08:11)
[2024-05-10] MEDS: PANTOPRAZOLE 40 MG INJ IVP SCH (08:12)
[2024-05-10] MEDS: CITALOPRAM 10 MG TABLET PO SCH (08:13)
[2024-05-10] MEDS: VALSARTAN 80 MG TAB PO SCH (08:13)
[2024-05-10] MEDS: FAMOTIDINE 20 MG TAB PO SCH (08:14)
[2024-05-10] MEDS: POTASSIUM CL SA 10 MEQ TAB PO ONE (08:14)
[2024-05-10] MEDS ORDERED: VALSARTAN 160 MG TAB PO SCH (09:00)
[2024-05-10] MEDS: UMECLIDINIUM BRM IH SCH (09:00)
[2024-05-10] MEDS: [UNRECOGNIZED DRUG - OTHER] PO SCH (09:00)
[2024-05-10] MEDS: VILANTEROL IH SCH (09:00)
[2024-05-10] MEDS ORDERED: hydroCHLOROthiazide 12.5 MG CAP PO SCH (09:00)
--- NOTE | 2024-05-10 09:17 | P.CNS ---
Date of Consult: 05/10/24 Reason for Consult: CKD III Requesting Physician: Eulalio Paz Chief Complaint: CAP, COPD exacerbation, and CKD History of Present Illness: Ms. Dias is a 73-year-old female with a past medical history of hypertension, hyperlipidemia, chronic stage III kidney disease status post renal cell resection, and COPD who presented to the emergency department via EMS status post 5 to 7 days of increasing shortness of breath. She denies fever, nausea, vomiting, or chest pain. Home medications for COPD including anoro. She states she thought her symptoms were in response to exposure to a significant allergen. EMS was toned out for significant shortness of breath and initial sat's were 80% on room air. She was given a small fluid bolus, Solu- Medrol 125 mg, neb treatments, and Levaquin. She is feeling significantly erika r. Chest x-ray shows pneumonia with concern for post obstructive process. CT PE protocol was obtained to rule out PE and acetylcysteine 600 mg was administered for renal protection secondary to contrast. She will be admitted for further evaluation and treatment of bilateral pneumonia (negative for PE). She is concerned about her IVC exposure. Denies constipation but reports no BM Allergies codeine Allergy (Severe, Verified 09/11/23 09:31) Vomiting metronidazole [From Flagyl] Allergy (Severe, Verified 09/11/23 09:31) Hives vancomycin Allergy (Severe, Verified 09/11/23 09:31) Hives adhesive tape Allergy (Verified 09/11/23 09:31) Blister latex Allergy (Verified 09/11/23 09:31) Blister hydralazine Adverse Reaction (Verified 05/11/24 09:42) Shortness of breath Home medications list reviewed: Yes Home Medications: Albuterol Inhaler [Ventolin Inhaler] 2 puff IH Q6H PRN 05/24/21 Citalopram [Celexa] 20 mg PO DAILY 05/24/21 Famotidine [Pepcid] 20 mg PO DAILY 05/24/21 Magnesium Oxide [Magnesium] 500 mg PO DAILY 05/24/21 Umeclidinium Brm/Vilanterol Tr [Anoro Ellipta 62.5-25 Mcg INH] 1 each IH DAILY 05/24/21 Telmisartan/Hydrochlorothiazid [Telmisartan-Hctz 80-12.5 mg Tb] 1 each PO DAILY 05/09/24 Nepro Shake [Nepro*] 240 ml PO TID #30 can 05/11/24 levoFLOXacin [Levaquin] 750 mg PO DAILY #7 tab 05/11/24 - Past Medical/Surgical History Diabetic: Yes -: Renal cell carcinoma sp resection -: CKD III (Dr. Braun/ [facility]) -: HTN -: HLD -: COPD -: Depression -: PAD -: Partial nephrectomy -: Appendectomy -: Hysterectomy -: Bilateral shoulder surgery -: bilateral feet Psychosocial/ Personal History: Lives in an apartment with her sister. No oxygen or assistive devices - Social History Smoking Status: Former smoker Alcohol use: No CD- Drugs: No Caffeine use: Yes Place of Residence: Home Review of Systems 10-point ROS is otherwise unremarkable General: Weakness, Malaise Respiratory: Cough, SOB with Excertion Physical Examination Temp Pulse Resp BP Pulse Ox 97.4 F 76 16 184/83 H 93 05/10/24 08:00 05/10/24 08:13 05/10/24 08:00 05/10/24 08:13 05/10/24 08:00 General: Oriented x3, Cooperative HEENT: Atraumatic Neck: Supple Respiratory: Crackles/rales, Expiratory wheezes Cardiovascular: No edema, Regular rate/rhythm Gastrointestinal: Soft and benign, Non-distended Musculoskeletal: No clubbing, No contractures Integumentary: No rashes, No cyanosis Neurological: Normal speech Laboratory Data (last 24 hrs) 05/09/24 05/09/24 05/09/24 15:35 13:34 13:34 WBC 12.30 H Hgb 10.1 L Hct 31.9 L Plt Count 593 H PT 13.7 H INR 1.23 APTT 26.7 Sodium 133 L Potassium 3.2 L BUN 37 H Creatinine 1.59 H Glucose 105 Magnesium 2.2 Total Bilirubin 0.4 AST 16 ALT 22 Alkaline Phosphatase 169 H Imagings Data: CXR and CTA reviewed. Conclusions/Impression: 73 yo WF former smoker admitted for COPD exacerbation/ PNA CKD III with Proteinuria Left Nephrectomy due to RCC 2023 Hx Left DEUCE -No NSAIDs -Monitor for DERRICK due to IVC exposure -Continue gently IVF to maintain urine output Hyponatremia -Continue IVF with NS -Hold HCTZ Hypokalemia -Replete as ordered HTN with CKD -Increase Losartan BID -Start Amlodipine 5mg BID Hypoalbuminemia -Start Nepro Anemia in chronic illness Hx iron deficiency 12.6% -Monitor H&H -Consider IV iron CKD MBD -Start Ergo Hospitalist and ER notes reviewed Thank you kindly for the consultation
[2024-05-10] MEDS: AMLODIPINE 5 MG TAB PO SCH (10:30)
--- NOTE | 2024-05-10 10:52 | P.PN ---
Subjective Date of Service: 05/10/24 Chief Complaint: CAP, COPD exacerbation, and CKD Pt is resting comfortably inbed. She is using 2L BNC, getting steroid, and abx. No other complaints. Review of Systems General: Unremarkable Eyes: Unremarkable ENT: Unremarkable Respiratory: SOB with Excertion Cardiovascular: Unremarkable Gastrointestinal: Unremarkable Genitourinary: Unremarkable Musculoskeletal: Unremarkable Integumentary: Unremarkable Neurological: Unremarkable Lymphatics: Unremarkable Physical Examination - Vital Signs Temperature: 97.4 F Blood Pressure: 184/83 Pulse: 76 Respirations: 16 Pulse Ox (%): 93 - Physical Exam General: Alert, In no apparent distress, Oriented x3 HEENT: Atraumatic, Normocephalic, PERRLA Neck: Supple, 2+ carotid pulse no bruit, JVD not distended Respiratory: Clear to auscultation bilaterally, Normal air movement, Crackles/rales Cardiovascular: No edema, Normal pulses, Regular rate/rhythm, Normal S1 S2 Capillary refill: <2 Seconds Gastrointestinal: Normal bowel sounds, Soft and benign, Non-distended Musculoskeletal: No clubbing, No swelling, No contractures Integumentary: No rashes, No breakdown, No significant lesion, No tenderness/swelling Neurological: Normal gait, Normal speech, Normal strength at 5/5 x4 extr Lymphatics: No axilla or inguinal lymphadenopathy - Studies Laboratory Data (last 24 hrs) 05/09/24 05/09/24 05/09/24 15:35 13:34 13:34 WBC 12.30 H Hgb 10.1 L Hct 31.9 L Plt Count 593 H PT 13.7 H INR 1.23 APTT 26.7 Sodium 133 L Potassium 3.2 L BUN 37 H Creatinine 1.59 H Glucose 105 Magnesium 2.2 Total Bilirubin 0.4 AST 16 ALT 22 Alkaline Phosphatase 169 H Assessment And Plan - Plan Acute COPD exacerbation: Will continue solumedrol, abx, duoneb, oxygen and mucinex. Consulted Pulm. CAP: CXR shows left lung pneumonia. Will continue iv rocephin/azithro and f/u blood cx. Hypokalemia: k is 3.7<- 3.2. Will replete and monitor. Elevated BNP: BNP is 1335. Will f/u Echo to r/o CHF. Htn: Continue home med CKD, stage 3: Cr is 1.59. Will avoid nephrotoxins and monitor renal function. DVT ppx: SCD Code: full Dispo: Pending hospital course
[2024-05-10] MEDS: AZITHROMYCIN IV 250 MG in NA CHLORIDE 0.9% 250 ML IVPB SCH (11:02)
[2024-05-10] MEDS: NEPRO SHAKE 237 ML CAN PO SCH (14:00)
[2024-05-10] MEDS: SOD FERRIC GLUC COMPLX/SUCROSE 250 MG in NA CHLORIDE 0.9% 250 ML IV SCH (14:40)
--- NOTE | 2024-05-10 18:45 | P.CNS ---
Date of Consult: 05/10/24 Chief Complaint: CAP, COPD exacerbation, and CKD History of Present Illness: Patient is 73 years of age with a history of COPD has been sick since the last weekend started complaining of left-sided pleuritic chest pain productive cough worsening dyspnea she went to urgent care and was sent here to the hospital patient did does have an acute left lower lobe pneumonia history of COPD and has been compliant with his her Anoro currently feeling better Allergies codeine Allergy (Severe, Verified 09/11/23 09:31) Vomiting metronidazole [From Flagyl] Allergy (Severe, Verified 09/11/23 09:31) Hives vancomycin Allergy (Severe, Verified 09/11/23 09:31) Hives adhesive tape Allergy (Verified 09/11/23 09:31) Blister latex Allergy (Verified 09/11/23 09:31) Blister Home Medications: Albuterol Inhaler [Ventolin Inhaler] 2 puff IH Q6H PRN 05/24/21 Citalopram [Celexa] 20 mg PO DAILY 05/24/21 Famotidine [Pepcid] 20 mg PO DAILY 05/24/21 Magnesium Oxide [Magnesium] 500 mg PO DAILY 05/24/21 Umeclidinium Brm/Vilanterol Tr [Anoro Ellipta 62.5-25 Mcg INH] 1 each IH DAILY 05/24/21 Telmisartan/Hydrochlorothiazid [Telmisartan-Hctz 80-12.5 mg Tb] 1 each PO DAILY 05/09/24 - Past Medical/Surgical History Diabetic: Yes -: Renal cell carcinoma sp resection -: CKD III (Dr. Braun/ [facility]) -: HTN -: HLD -: COPD -: Depression -: PAD -: Hypercholesterolemia -: Partial nephrectomy -: Appendectomy -: Hysterectomy -: Bilateral shoulder surgery -: bilateral feet Psychosocial/ Personal History: Lives in an apartment with her sister. No oxygen or assistive devices - Social History Smoking Status: Former smoker Alcohol use: No CD- Drugs: No Caffeine use: Yes Place of Residence: Home Review of Systems 10-point ROS is otherwise unremarkable Physical Examination Temp Pulse Resp BP Pulse Ox 97.4 F 74 14 189/77 H 93 05/10/24 16:00 05/10/24 16:00 05/10/24 16:05/10/24 16:00 05/10/24 16:00 General: Alert, Oriented x3 Respiratory: Crackles/rales (Crackles on the left side) Cardiovascular: No edema, Regular rate/rhythm, Normal S1 S2 Gastrointestinal: Normal bowel sounds, Soft and benign, Non-distended - Problems (1) Pneumonia Current Visit: Yes Status: Acute Plan: Patient is 73 years of age admitted with acute onset of left lower lobe pneumonia history of COPD currently her vital signs are all stable renal function is mildly abnormal alkaline phosphatase is mildly elevated white count is improving patient does have some slight mild microcytic anemia she does takes Anoro and albuterol at home as patient is doing better changed to p.o. 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 on levofloxacin for 5 days Qualifiers: Pneumonia type: due to unspecified organism Laterality: left
[2024-05-10] MEDS: ALBUTEROL 2.5 MG/3 ML NEB SOL NEB PRN (19:04)
[2024-05-10] MEDS ORDERED: levoFLOXacin 250 MG TAB PO SCH (20:26)
[2024-05-10] MEDS: LOSARTAN POTASSIUM 50 MG TABLET PO SCH (20:48)
[2024-05-10] MEDS: levoFLOXacin 750 MG TAB PO SCH (20:49)
[2024-05-10] MEDS: DOCUSATE NA 100 MG CAP PO SCH (20:49)
[2024-05-11] MEDS: HYDRALAZINE HCL 20 MG/ML VIAL IV PRN (07:17)
[2024-05-11 07:21] LABS: ALT/SGPT 47 U/L (13-56); AST/SGOT 45 U/L (15-37); Albumin 1.9 g/dL (3.4-5.0); Albumin/Globulin Ratio 0.5 (1.1-1.8); Alkaline Phosphatase 128 U/L (45-117); Anion Gap 8.1 mEq/L (5.0-15.0); BUN Blood Urea Nitrogen 36 mg/dL (7-18); Bicarbonate 23 mEq/L (21-32); Glomerular Filtration Rate 41 ml/min (=/>90); Glucose Level 114 mg/dL (74-106); Potassium 4.1 mEq/L (3.5-5.1); Protein, Total 5.9 g/dL (6.4-8.2); Sodium Level 139 mEq/L (136-145)
[2024-05-11 07:22] LABS: Absolute Lymphocytes (CBC) 1.2 K/uL (0.7-4.9); Absolute Monocytes 1.1 K/uL (0.1-1.3); Absolute Neutrophil 17.4 K/uL (1.8-8.0); Basophils % 0.1 % (0-1.3); Hematocrit 27.2 % (36.0-45.0); Hemoglobin 8.4 g/dL (12.0-15.0); Lymphocytes % 6.1 % (15.3-44.8); MCV 80.8 fL (80-100); MPV 9.2 fL (7.6-11.3); Monocytes % 5.4 % (3.3-12.3); Neutrophils % 88.4 % (41.7-73.7); Platelets 549 thou/uL (152-406); RBC Red Blood Cell Count 3.37 M/uL (3.86-4.86); Red Cell Distribution Width 13.3 % (12.1-15.2)
[2024-05-11 07:24] LABS: Bilirubin Total < 0.2 mg/dL (0.2-1.0)
[2024-05-11] MEDS: ANORO ELLIPTA IH SCH (08:06)
[2024-05-11] MEDS: DRISDOL (VITAMIN D=ERGOCALCIFEROL) 50000 UNIT CAP PO SCH (08:09)
[2024-05-11 08:15] LABS: Blood Morphology Comment NOT SEEN (NOT SEEN); Differential Total Cells Count 100; Lymphocytes 13 % (15-42); Monocytes 7 % (0-10); Platelet Estimate INCR; Segmented Neutrophils 80 % (40-80)
--- NOTE | 2024-05-11 09:49 | P.DS ---
Admission Date: 05/09/24 Discharge Date: 05/11/24 Reason for Admission: CAP, COPD exacerbation, and CKD Consultations: Dr. Thomas, Dr. Garrido Brief History of Present Illness: Ms. Dias is a 73-year-old female with a past medical history of hypertension , hyperlipidemia, chronic stage III kidney disease status post stage IV renal cell resection, and COPD who presented to the emergency department via EMS status post 5 to 7 days of increasing shortness of breath. She denies fever, nausea, vomiting, or chest pain. Home medications for COPD including anoro. She states she thought her symptoms were in response to exposure to a significant allergen. EMS was toned out for significant shortness of breath and initial sat's were 80% on room air. She was given a small fluid bolus, Solu- Medrol 125 mg, neb treatments, and Levaquin. She is feeling significantly better. Chest x-ray shows pneumonia with concern for post obstructive process. CT PE protocol was obtained to rule out PE and acetylcysteine 600 mg was administered for renal protection secondary to contrast. She will be admitted for further evaluation and treatment of bilateral pneumonia (negative for PE). Hospital Course: Ms. Dias is having less cough, less shortness of breath, and is feeling a lot better. Her renal function has returned to baseline status post mild volume depletion with gentle IV fluids and withholding HCTZ, she was cleared by Dr. Thomas. She was also seen by Dr. Garrido and IV antibiotics switched to Levaquin 750 mg p.o. daily. There was a noted increase in white count probably secondary to steroid introduction. Leukocyte percentage is however decreasing and steroids were discontinued. Ms. Dias was quite happy with her telmisartan/HCTZ and does not feel well with losartan, amlodipine, and/or hydralazine. Those medications were held today and she took her own home telmisartan HCTZ for blood pressure of 191/90 -> repeat BP 148/63. She should follow-up with pulmonology in 2 weeks for repeat chest x-ray to document clearance of pneumonia. <Monica Velazquez - Last Filed: 05/11/24 09:41> Admission Date: 05/09/24 Discharge Date: 05/11/24 Hospital Course: Patient was seen and examined. Events of the last 24 hours have been noted. Spoke with with ABDIFATAH regarding patient's clinical picture after evaluating and examining the patient independently. I performed a substantial part of the MDM during this patient's care today. I personally made or approved the documented management plan and acknowledge its risk of complications. I agree with the findings and documentation provided in the ABDIFATAH's notes. <Macario Garsia - Last Filed: 05/18/24 21:51> Disposition: ROUTINE DISCHARGE Discharge Condition: GOOD Vital Signs/Physical Exam: Temp Pulse Resp BP Pulse Ox 97.5 F 73 14 148/63 H 96 05/11/24 08:00 05/11/24 09:35 05/11/24 08:00 05/11/24 09:35 05/11/24 08:00 General: Alert, In no apparent distress, Oriented x3 HEENT: Atraumatic, Normocephalic Neck: Supple Respiratory: Normal air movement, Expiratory wheezes Cardiovascular: Regular rate/rhythm, Normal S1 S2 Capillary refill: <2 Seconds Gastrointestinal: Soft and benign Musculoskeletal: No clubbing Integumentary: No rashes Neurological: Normal speech, Normal tone, Normal affect Lymphatics: No axilla or inguinal lymphadenopathy External genitalia: Deferred Rectal: Deferred Laboratory Data at Discharge: WBC 19.70 thou/uL (4.3-10.9) H 05/11/24 06:46 Hgb 8.4 g/dL (12.0-15.0) L 05/11/24 06:46 Hct 27.2 % (36.0-45.0) L 05/11/24 06:46 Plt Count 549 thou/uL (152-406) H 05/11/24 06:46 PT 13.7 SECONDS (9.4-12.5) H 05/09/24 15:35 INR 1.23 05/09/24 15:35 APTT 26.7 SECONDS (24.3-36.9) 05/09/24 15:35 Sodium 139 mEq/L (136-145) 05/11/24 06:46 Potassium 4.1 mEq/L (3.5-5.1) 05/11/24 06:46 BUN 36 mg/dL (7-18) H 05/11/24 06:46 Creatinine 1.34 mg/dL (0.55-1.02) H 05/11/24 06:46 Glucose 114 mg/dL (74-106) H 05/11/24 06:46 Magnesium 2.2 mg/dL (1.6-2.4) 05/10/24 04:21 Total Bilirubin < 0.2 mg/dL (0.2-1.0) L 05/11/24 06:46 AST 45 U/L (15-37) H 05/11/24 06:46 ALT 47 U/L (13-56) 05/11/24 06:46 Alkaline Phosphatase 128 U/L (45-117) H 05/11/24 06:46 Triglycerides 75 mg/dL (<150) 05/10/24 04:21 Cholesterol 164 mg/dL (<200) 05/10/24 04:21 HDL Cholesterol 34 mg/dL (40-60) L 05/10/24 04:21 Cholesterol/HDL Ratio 4.82 05/10/24 04:21 <Velazquez,Monica Abhishek - Last Filed: 05/11/24 09:41> Vital Signs/Physical Exam: Temp Pulse Resp BP Pulse Ox 98.1 F 79 14 172/81 H 96 05/11/24 12:00 05/11/24 12:00 05/11/24 12:00 05/11/24 12:00 05/11/24 12:00 Laboratory Data at Discharge: WBC 19.70 thou/uL (4.3-10.9) H 05/11/24 06:46 Hgb 8.4 g/dL (12.0-15.0) L 05/11/24 06:46 Hct 27.2 % (36.0-45.0) L 05/11/24 06:46 Plt Count 549 thou/uL (152-406) H 05/11/24 06:46 PT 13.7 SECONDS (9.4-12.5) H 05/09/24 15:35 INR 1.23 05/09/24 15:35 APTT 26.7 SECONDS (24.3-36.9) 05/09/24 15:35 Sodium 139 mEq/L (136-145) 05/11/24 06:46 Potassium 4.1 mEq/L (3.5-5.1) 05/11/24 06:46 BUN 36 mg/dL (7-18) H 05/11/24 06:46 Creatinine 1.34 mg/dL (0.55-1.02) H 05/11/24 06:46 Glucose 114 mg/dL (74-106) H 05/11/24 06:46 Magnesium 2.2 mg/dL (1.6-2.4) 05/10/24 04:21 Total Bilirubin < 0.2 mg/dL (0.2-1.0) L 05/11/24 06:46 AST 45 U/L (15-37) H 05/11/24 06:46 ALT 47 U/L (13-56) 05/11/24 06:46 Alkaline Phosphatase 128 U/L (45-117) H 05/11/24 06:46 Triglycerides 75 mg/dL (<150) 05/10/24 04:21 Cholesterol 164 mg/dL (<200) 05/10/24 04:21 HDL Cholesterol 34 mg/dL (40-60) L 05/10/24 04:21 Cholesterol/HDL Ratio 4.82 05/10/24 04:21 <Macario Garsia - Last Filed: 05/18/24 21:51> Diet: Low sodium Activity: Ad natalie <Monica Velazquez - Last Filed: 05/11/24 09:41> <Macario Garsia - Last Filed: 05/18/24 21:51> Home Medications: Albuterol Inhaler [Ventolin Inhaler] 2 puff IH Q6H PRN 05/24/21 Citalopram [Celexa] 20 mg PO DAILY 05/24/21 Famotidine [Pepcid] 20 mg PO DAILY 05/24/21 Magnesium Oxide [Magnesium] 500 mg PO DAILY 05/24/21 Umeclidinium Brm/Vilanterol Tr [Anoro Ellipta 62.5-25 Mcg INH] 1 each IH DAILY 05/24/21 Telmisartan/Hydrochlorothiazid [Telmisartan-Hctz 80-12.5 mg Tb] 1 each PO DAILY 05/09/24 Nepro Shake [Nepro*] 240 ml PO TID #30 can 05/11/24 levoFLOXacin [Levaquin] 750 mg PO DAILY #7 tab 05/11/24 New Medications: levoFLOXacin [Levaquin] 750 mg PO DAILY #7 tab Nepro Shake [Nepro*] 240 ml PO TID #30 can Physician Discharge Instructions: Ms. Dias is having less cough, less shortness of breath, and is feeling a lot better. Her renal function has returned to baseline status post mild volume depletion with gentle IV fluids and withholding HCTZ, she was cleared by Dr. Thomas. She was also seen by Dr. Garrido and IV antibiotics switched to Levaquin 750 mg p.o. daily. There was a noted increase in white count probably secondary to steroid introduction. Leukocyte percentage is however decreasing and steroids were discontinued. Ms. Dias was quite happy with her telmisartan/HCTZ and does not feel well with losartan, amlodipine, and/or hydralazine. Those medications were held today and she took her own home tel misartan HCTZ for blood pressure of 191/90 -> repeat BP 148/63. She should follow-up with pulmonology in 2 weeks for repeat chest x-ray to document clearance of pneumonia. Continue telmisartan/HCTZ Continue Anoro Levaquin 750 mg 1 p.o. daily x 7 days #7 Follow-up with pulmonology in 2 weeks, recommend repeat chest x-ray for documentation of clearance of pneumonia Continue home medicines as previously prescribed GOAL: Clear understanding of disease process Diet: ADA, low sodium Activity: Fall precautions INSTRUCTIONS: Physician Discharge Instructions: Okay to DC IV and DC home Follow-up with primary care provider in 1 to 2 weeks Follow-up with pulmonology in 2-weeks Please call the inpatient unit for any questions or concerns regarding hospital stay Return to the ER for worsening symptoms Followup: Brayan Garrido MD [ACTIVE - CAN ADMIT] - (follow up in 2 weeks) Tremaine Braun [ACTIVE - CAN ADMIT] - Kesha Huerta MD [Primary Care Provider] - 1-2 Weeks
[2024-05-11] MEDS: SOD FERRIC GLUC COMPLX/SUCROSE 250 MG in NA CHLORIDE 0.9% 250 ML IV SCH ×2 (10:04→10:17)
[2024-05-11 12:31] VITALS: BP 172/81; TEMP 98.1
[2024-05-11 15:07] VITALS: O2SAT 92
--- NOTE | 2024-05-12 10:25 | EKG ---
Test Date: 2024-05-09 Test Time: 13:35:50 Surgery Nurse: MB MEASUREMENT RESULTS: Intervals: Rate: 70 UT: 152 QRSD: 82 QT: 444 QTc: 479 [place]: P: 52 UT: 152 QRS: 74 T: 36 INTERPRETIVE STATEMENTS: Normal sinus rhythm Normal ECG Compared to ECG 09/11/2023 11:06:13 Sinus bradycardia no longer present Electronically Signed On 05-12-24 10:21:06 CDT by Koffi Carranza
== END 2024-05-11 13:45 | disposition home or self-care (01) | DRG 193 ==
LOC: ER 13:15 → ERHOLD 17:45 → 2ND 18:10
PROVIDERS: ADMIT Hospitalist; ATTEND Hospitalist
DX: J18.9 Pneumonia, unspecified organism (principal); J96.01 Acute respiratory failure with hypoxia; J44.0 Chronic obstructive pulmonary disease with (acute) lower respiratory infection; J44.1 Chronic obstructive pulmonary disease with (acute) exacerbation; E87.1 Hypo-osmolality and hyponatremia; I12.9 Hypertensive chronic kidney disease with stage 1 through stage 4 chronic kidney disease, or unspecified chronic kidney disease; N18.30 Chronic kidney disease, stage 3 unspecified; D63.1 Anemia in chronic kidney disease; E87.6 Hypokalemia; E78.00 Pure hypercholesterolemia, unspecified; K21.9 Gastro-esophageal reflux disease without esophagitis; E88.09 Other disorders of plasma-protein metabolism, not elsewhere classified; Z90.5 Acquired absence of kidney; Z88.5 Allergy status to narcotic agent; Z88.1 Allergy status to other antibiotic agents; Z90.49 Acquired absence of other specified parts of digestive tract; Z85.528 Personal history of other malignant neoplasm of kidney; Z90.710 Acquired absence of both cervix and uterus; Z87.891 Personal history of nicotine dependence; Z91.040 Latex allergy status; Z79.899 Other long term (current) drug therapy
CPT/HCPCS: 36415; 71045; 71275; 80048; 80053; 80061; 80076; 83605; 83735; 83880; 84132; 84443; 84484; 85025; 85610; 85730; 87040; 93005; 94640; 94760; 99285; J0132; J0360; J0696; J1644; J2470; J2916; J7030; J7050; J7060; J7613; J7644; Q9967

== ENCOUNTER 2024-10-17 08:39 | Day surgery (SDC) | payer MEDICARE, OTHER ==
[2024-10-16 09:51] LABS: Absolute Basophils 0.1 K/uL (0-0.5); Absolute Eosinophils 0.4 K/uL (0-0.5); Absolute Lymphocytes (CBC) 1.4 K/uL (0.7-4.9); Absolute Monocytes 0.4 K/uL (0.1-1.3); Basophils % 0.9 % (0-1.3); Hematocrit 30.8 % (36.0-45.0); Lymphocytes % 22.8 % (15.3-44.8); MCH 26.7 pg (27.0-35.0); MCHC 32.4 g/dL (32.0-36.0); MCV 82.6 fL (80-100); MPV 9.3 fL (7.6-11.3); Monocytes % 6.3 % (3.3-12.3); Platelets 318 thou/uL (152-406); RBC Red Blood Cell Count 3.73 M/uL (3.86-4.86); Red Cell Distribution Width 13.9 % (12.1-15.2)
[2024-10-16 10:01] LABS: PTT, Activated Partial Thromb 31.2 SECONDS (24.3-36.9); Protime INR 0.96
[2024-10-16 10:08] LABS: Anion Gap 7.9 mEq/L (5.0-15.0); Potassium 3.9 mEq/L (3.5-5.1)
[2024-10-17] MEDS: Ringers Lactate 1,000 ML IV ONE (09:10)
[2024-10-17] MEDS ORDERED: LIDOCAINE 1% MPF 5 ML VIAL ONE (10:53)
[2024-10-17] MEDS ORDERED: propofoL 200 MG/20 ML VIAL IV ONE (10:54)
[2024-10-17 13:08] VITALS: BP 141/84; TEMP 97.1; O2SAT 96
== END 2024-10-17 12:25 | disposition home or self-care (01) ==
LOC: OR 08:39
PROVIDERS: ATTEND Surgery
PROC: 0DB98ZX Excision of Duodenum, Via Natural or Artificial Opening Endoscopic, Diagnostic (ICD-10-PCS; 2024-10-17)
PROC: 0DB78ZX Excision of Stomach, Pylorus, Via Natural or Artificial Opening Endoscopic, Diagnostic (ICD-10-PCS; 2024-10-17)
PROC: 0DB68ZX Excision of Stomach, Via Natural or Artificial Opening Endoscopic, Diagnostic (ICD-10-PCS; 2024-10-17)
PROC: 0DB48ZX Excision of Esophagogastric Junction, Via Natural or Artificial Opening Endoscopic, Diagnostic (ICD-10-PCS; 2024-10-17)
PROC: 0DBK8ZX Excision of Ascending Colon, Via Natural or Artificial Opening Endoscopic, Diagnostic (ICD-10-PCS; principal; 2024-10-17 10:45)
PROC: 0DBN8ZX Excision of Sigmoid Colon, Via Natural or Artificial Opening Endoscopic, Diagnostic (ICD-10-PCS; 2024-10-17 10:45)
DX: Z12.11 Encounter for screening for malignant neoplasm of colon (principal); K21.9 Gastro-esophageal reflux disease without esophagitis; D64.9 Anemia, unspecified; K21.00 Gastro-esophageal reflux disease with esophagitis, without bleeding; D12.2 Benign neoplasm of ascending colon; D12.3 Benign neoplasm of transverse colon; K57.30 Diverticulosis of large intestine without perforation or abscess without bleeding; K64.8 Other hemorrhoids; R10.13 Epigastric pain; K22.70 Barrett's esophagus without dysplasia; K29.51 Unspecified chronic gastritis with bleeding
CPT/HCPCS: 85025; 80048; 36415; 88312; 85610; 88305; 85730; 45385; 43239; J2704; J2003; J7120

== ENCOUNTER 2024-11-27 17:33 | Inpatient (IN) | payer OTHER ==
[2024-11-27 18:26] LABS: Absolute Basophils 0.1 K/uL (0-0.5); Absolute Eosinophils 0.5 K/uL (0-0.5); Absolute Lymphocytes (CBC) 1.7 K/uL (0.7-4.9); Absolute Monocytes 0.4 K/uL (0.1-1.3); Absolute Neutrophil 5.5 K/uL (1.8-8.0); Eosinophils % 5.7 % (0-4.4); Hematocrit 16.8 % (36.0-45.0); MCH 28.1 pg (27.0-35.0); MCV 82.7 fL (80-100); MPV 9.5 fL (7.6-11.3); Monocytes % 4.6 % (3.3-12.3); Neutrophils % 67.7 % (41.7-73.7); Nucleated Red Blood Cells % 0.1 % (0-0); Platelets 355 thou/uL (152-406); RBC Red Blood Cell Count 2.03 M/uL (3.86-4.86); Red Cell Distribution Width 15.9 % (12.1-15.2)
--- NOTE | 2024-11-27 18:36 | RAD REPORT ---
EXAMINATION: ONE VIEW CHEST XR CLINICAL INDICATION: CHEST PAIN TECHNIQUE: Frontal chest projection is submitted. Examination is limited by patient positioning and t echnique. COMPARISON: 06/20/2024 FINDINGS: The lungs are well inflated and clear. The heart is upper limit of normal in size. No displaced fract ures identified. Aortic atherosclerosis. IMPRESSION: No acute intrathoracic abnormalities.
[2024-11-27 18:38] LABS: Hemoglobin 5.7 g/dL (12.0-15.0)
[2024-11-27 18:45] LABS: ALT/SGPT 17 U/L (13-56); Albumin 3.2 g/dL (3.4-5.0); Albumin/Globulin Ratio 1.1 (1.1-1.8); Alkaline Phosphatase 109 U/L (45-117); Anion Gap 11.5 mEq/L (5.0-15.0); BUN Blood Urea Nitrogen 71 mg/dL (7-18); Bicarbonate 22 mEq/L (21-32); Bilirubin Total 0.2 mg/dL (0.2-1.0); Globulin 2.8 g/dL (2.3-3.5); Glomerular Filtration Rate 25 ml/min (=/>90); Glucose Level 128 mg/dL (74-106); Lipase 30 U/L (13-75); Potassium 3.5 mEq/L (3.5-5.1); Sodium Level 140 mEq/L (136-145)
[2024-11-27 18:47] LABS: AST/SGOT < 10 U/L (15-37)
[2024-11-27] MEDS ORDERED: NA CHLORIDE 0.9% 250 ML ONE ×2 (20:12→20:26)
[2024-11-27] MEDS ORDERED: PANTOPRAZOLE 40 MG INJ ONE (20:26)
[2024-11-27 20:33] LABS: PT Prothrombin Time 15.9 SECONDS (10-13.0); PTT, Activated Partial Thromb 32.2 SECONDS (27.2-37.4); Protime INR 1.42
--- NOTE | 2024-11-27 21:10 | RAD REPORT ---
EXAMINATION: CT ABDOMEN AND PELVIS WITHOUT CONTRAST CLINICAL INDICATION: ABD PAIN TECHNIQUE: CT abdomen and pelvis was performed, without IV contrast, as per department protocol. Axia l, sagittal and coronal reconstructions were obtained. One or more of the following dose reduction techniques were used: Automated exposure control, adjustment of the mA and kV according to the patien t size, and iterative reconstruction. Unless otherwise specified, incidental findings do not require dedicated imaging follow-up. COMPARISON: No prior exam. FINDINGS: The lack of intravenous contrast limits the sensitivity of this exam for evaluation of solid visceral organs, vascular structures, and retroperitoneum. LOWER CHEST: The visualized lung bases are clear. Calcified breast implants. LIVER:Normal in size and contour. No focal lesion. Small stone is present in the gallbladder. SPLEEN: Normal size. No focal lesion. PANCREAS: No mass, ductal dilation, or crys-pancreatic fluid. ADRENALS: 10 mm thickening of the adrenal gland. Adrenal glands are otherwise unremarkable. KIDNEYS AND URETERS: Normal size and contour. No hydronephrosis. URINARY BLADDER: Normal contour. GASTROINTESTINAL TRACT: No evidence of bowel obstruction, significant free fluid, free air or abscess . There is moderate diverticulosis coli of the sigmoid colon without diverticulitis. Moderate stool is present throughout the colon. APPENDIX: Appendix not visualized, but no inflammatory changes in region of appendix. LYMPH NODES: No lymphadenopathy. MUSCULOSKELETAL: Mild lower lumbar spondylosis. ADDITIONAL FINDINGS: Aortoiliac atherosclerosis. Right femoral artery stent. IMPRESSION: There is prominent mural thickening and diverticulosis of the sigmoid colon. There is a large amount of stool retained in the rectosigmoid colon.
--- NOTE | 2024-11-27 21:32 | ER ---
Nurse's Notes [facility] Name: Myrtle Dias Age: 74 yrs Sex: Female : 1950 Arrival Date: 11/27/2024 Time: 17:33 Bed 4 Private MD: Diagnosis: Non ST elevation WI;Anemia in other chronic diseases classified elsewhere;GI Bleed/ Gastrointestinal hemorrhage, unspecified Presentation: 11/27 17:51 Chief complaint: Patient states: has been passing blood in her stool for 2 weeks, Dr. marco a Collins said if it got worse to come to the ER, he did a colonoscopy last month, there was a large polyp removed and clipped but she is on blood thinners. Coronavirus screen: At this time, the client does not indicate any symptoms associated with coronavirus-19. Ebola Screen: No symptoms or risks identified at this time. Initial Sepsis Screen: Does the patient meet any 2 criteria? No. Patient's initial sepsis screen is negative. Does the patient have a suspected source of infection? No. Patient's initial sepsis screen is negative. Risk Assessment: Do you want to hurt yourself or someone else? Patient reports no desire to harm self or others. Onset of symptoms was November 13, 2024. 17:51 Method Of Arrival: Ambulatory iw 17:51 Acuity: DAVID 3 iw 19:05 Acuity: DAVID 2 iw Historical: - Allergies: 17:53 Codeine; iw 17:53 Flagyl; iw 17:53 Vancomycin; iw 17:53 Latex, Natural Rubber; iw 17:53 HYDRALAZINE; iw - PMHx: 17:53 COPD; depressive disorder; GERD; Hypercholesterolemia; Hypertension; peripheral iw arterial disease; Stage 3 CKD; Stage 4 kidney cancer; - PSHx: 17:53 Tonsillectomy; Total abdominal hysterectomy; Appendectomy; iw - Immunization history:: Adult Immunizations up to date. - Infectious Disease History:: Denies. - Social history:: Smoking status: Patient/guardian denies using tobacco, the patient reports quitting approximately 20 years ago. Screenin:13 [facility] ED Fall Risk Assessment (Adult) History of falling in the last 3 months, cp4 including since admission No falls in past 3 months (0 pts) Confusion or Disorientation No (0 pts) Intoxicated or Sedated No (0 pts) Impaired Gait No (0 pts) Mobility Assist Device Used No (0 pt) Altered Elimination No (0 pt) Score/Fall Risk Level 0 - 2 = Low Risk Oriented to surroundings, Maintained a safe environment, Assessed \T\ reinforced patient's understanding of fall precautions, Hourly rounding (assess needs \T\ fall precautionary measures) done. Abuse screen: Denies threats or abuse. Denies injuries from another. Nutritional screening: No deficits noted. Tuberculosis screening: No symptoms or risk factors identified. Assessment: 22:13 General: Appears in no apparent distress. uncomfortable, Behavior is calm, cooperative, cp4 appropriate for age. Pain: Denies pain. Neuro: Level of Consciousness is awake, alert, obeys commands, Oriented to person, place, time, situation. Cardiovascular: Rhythm is regular. Respiratory: Airway is patent Respiratory effort is even, unlabored. GI: Abdomen is round non-distended, Bowel sounds present X 4 quads. Abd is soft and non tender X 4 quads. Reports bloody stool. : No signs and/or symptoms were reported regarding the genitourinary system. EENT: No signs and/or symptoms were reported regarding the EENT system. Derm: No signs and/or symptoms reported regarding the dermatologic system. Musculoskeletal: No signs and/or symptoms reported regarding the musculoskeletal system. 11/28 02:07 Reassessment: Patient appears in no apparent distress at this time. Patient and/or cp4 family updated on plan of care and expected duration. Pain level reassessed. Patient is alert, oriented x 3, equal unlabored respirations, skin warm/dry/pink. 02:07 Reassessment: See Blood Transfusion Record for vital signs. cp4 Vital Signs: 11/27 17:51 BP 115 / 45; Pulse 90; Resp 19; Temp 98.6; Pulse Ox 95% on R/A; Weight 54.43 kg; Height iw 5 ft. 0 in. ; 20:00 BP 152 / 60; Pulse 85; Resp 18; Pulse Ox 99% on 2 lpm NC; cp4 22:00 BP 143 / 57; Pulse 80; Resp 18; Pulse Ox 92% on R/A; cp4 23:00 BP 124 / 53; Pulse 79; Resp 18; Pulse Ox 96% ; cp4 11/28 00:00 BP 144 / 70; Pulse 16; Resp 79; Pulse Ox 97% ; cp4 01:00 BP 127 / 60; Pulse 61; Resp 15; Pulse Ox 99% ; cp4 02:00 BP 138 / 64; Pulse 71; Resp 15; Pulse Ox 98% ; cp4 02:58 BP 138 / 76; Pulse 69; Resp 15; Pulse Ox 96% ; cp4 11/27 17:51 Body Mass Index 23.44 (54.43 kg, 152.4 cm) iw ED Course: 11/27 17:38 Patient arrived in ED. gl 17:41 Flavio Ro PA is PHCP. cp 17:41 Roxi Kirby MD is Attending Physician. cp 17:53 Triage completed. iw 17:54 Arm band placed on. iw 18:24 XRAY Chest (1 view) In Process Unspecified. EDMS 18:31 Inserted saline lock: 20 gauge in right antecubital area, using aseptic technique. iw Blood collected. Flushed with 10 mL NS. 19:49 Inserted saline lock: 20 gauge in left antecubital area, using aseptic technique. Blood br2 collected. Flushed with 10 mL NS. 20:51 Pam Rceio is Primary Nurse. cp4 21:04 CT Abd/Pelvis - Without Contrast In Process Unspecified. EDMS 21:30 Cali Zamora MD is Hospitalizing Provider. cp 22:13 Bed in low position. Call light in reach. Side rails up X 1. cp4 22:13 Served as a copy room technician during rectal exam. cp4 23:33 Provided Education on: Blood Transfusion. cp4 23:51 Flavio Gandhi MD is Attending Physician. cp 11/28 03:06 Patient transferred, IV remains in place. cp4 Administered Medications: 11/27 20:52 Drug: Pantoprazole IV 8 mg/hr IV at 25 ml/hr continuous; (Standard dilution is 80 mg in cp4 250 mL NS) Route: IV; Rate: 25 ml/hr; Site: right antecubital; 11/28 02:57 Follow up: IV Status: Infusion continued upon transfer cp4 11/27 20:52 Drug: Pantoprazole IVP 40 mg IVP once Route: IVP; Site: right antecubital; cp4 21:42 Follow up: Response: No adverse reaction cp4 21:41 Drug: Piperacillin-Tazobactam IVPB 3.375 grams IVPB once over 60 mins; (mix in NS 100 cp4 mL) Route: IVPB; Infused Over: 60 mins; Site: left antecubital; 22:31 Follow up: Response: No adverse reaction; IV Status: Completed infusion cp4 11/28 02:54 Drug: Pantoprazole IVP 40 mg IVP once Route: IVP; Site: right antecubital; lg3 02:54 Follow up: Response: No adverse reaction; Medication Administered at Departure lg3 Medication: 11/27 22:13 VIS not applicable for this client. cp4 Outcome: 21:31 Decision to Hospitalize by Provider. cp 23:54 ER care complete, transfer ordered by MD. cp 11/28 03:06 Transferred by ground EMS to [facility], [facility], Transfer form completed. cp4 X-rays sent w/ patient. Condition: stable Instructed on the need for transfer, 03:09 Patient left the ED. cp4 Signatures: Dispatcher [employer] EDMS Melyssa Roque RN RN iw Flavio Ro, BANDAR PA cp Virgie Disla RN RN lg3 Pam Recio cp4 Vanessa Mares RN RN br2 Nereyda Preciado, Reg Reg gl Corrections: (The following items were deleted from the chart) 11/27 17:53 17:51 BP 115 / 45; Pulse 90bpm; Resp 19bpm; Pulse Ox 95% RA; Temp 98.6F; iw iw
--- NOTE | 2024-11-27 21:32 | EDPHYS ---
Physician Documentation [facility] Name: Myrtle Dias Age: 74 yrs Sex: Female : 1950 Arrival Date: 11/27/2024 Time: 17:33 Bed 4 Private MD: HESHAM Physician Flavio Gandhi HPI: 11/27 18:05 This 74 yrs old Female presents to ER via Ambulatory with complaints of Bloody Stools, cp Chest Pain. 18:05 The patient presents to the emergency department with rectal bleeding, dark red blood cp with bowel movement melena, with multiple such episodes. Onset: The symptoms/episode began/occurred for past 2-3 weeks. 18:05 Abdominal pain: described as crampy, located in the lower abdomen. Modifying factors: cp The symptoms are alleviated by nothing. Associated signs and symptoms: Pertinent positives: chest pain, shortness of breath, Pertinent negatives: constipation, diarrhea, fever, syncope. Patient reports she had polyp removed from colon by DR Collins last month, currently takes Xarelto blood thinner with last dose last night and last took an aspirin about 1 week ago. Historical: - Allergies: 17:53 Codeine; iw 17:53 Flagyl; iw 17:53 Vancomycin; iw 17:53 Latex, Natural Rubber; iw 17:53 HYDRALAZINE; iw - PMHx: 17:53 COPD; depressive disorder; GERD; Hypercholesterolemia; Hypertension; peripheral iw arterial disease; Stage 3 CKD; Stage 4 kidney cancer; - PSHx: 17:53 Tonsillectomy; Total abdominal hysterectomy; Appendectomy; iw - Immunization history:: Adult Immunizations up to date. - Infectious Disease History:: Denies. - Social history:: Smoking status: Patient/guardian denies using tobacco, the patient reports quitting approximately 20 years ago. ROS: 18:10 Eyes: Negative for injury, pain, redness, and discharge, cp 18:10 Constitutional: Negative for body aches, chills, fever, poor PO intake, 18:10 ENT: Negative for drainage from ear(s), ear pain, sore throat, difficulty swallowing, difficulty handling secretions, 18:10 Cardiovascular: Positive for chest pain, Negative for palpitations, 18:10 Neuro: Positive for weakness, Negative for altered mental status, syncope, 18:10 Respiratory: Positive for shortness of breath, on exertion. Negative for cough, cp wheezing, 18:10 Abdomen/GI: Positive for abdominal cramps, black/tarry stool, rectal bleeding, Negative for vomiting, diarrhea, 18:10 All other systems are negative, Exam: 18:15 Constitutional: The patient appears in no acute distress, alert, awake, cp non-diaphoretic, non-toxic, well developed, well nourished, pale, 18:15 Head/Face: Normocephalic, atraumatic. cp 18:15 Eyes: Periorbital structures: appear normal, Pupils: equal, round, and reactive to light and accomodation, Extraocular movements: intact throughout, Conjunctiva: normal, no exudate, no injection, Sclera: no appreciated abnormality, Lids and lashes: appear normal, bilaterally, 18:15 ENT: External ear(s): are unremarkable, Nose: is normal, Mouth: Lips: moist, Oral mucosa: moist, Posterior pharynx: Airway: no evidence of obstruction, patent, 18:15 Chest/axilla: Inspection: normal, 18:15 Cardiovascular: Rate: actual rate is 90 bpm, Rhythm: regular, Edema: is not appreciated, JVD: is not appreciated, 18:15 Respiratory: the patient does not display signs of respiratory distress, Respirations: normal, no use of accessory muscles, no retractions, labored breathing, is not present, Breath sounds: are clear throughout, no decreased breath sounds, no stridor, no wheezing, 18:15 Abdomen/GI: Inspection: abdomen appears normal, Bowel sounds: active, all quadrants, Palpation: soft, in all quadrants, nontender, in all quadrants, 18:15 Back: pain, is absent, ROM is normal, 18:15 Neuro: Orientation: to person, place \T\ time. Mentation: is normal, Motor: moves all fours, strength is normal, Sensation: no obvious gross deficits, 19:47 ECG was reviewed by the Attending Physician. cp 11/28 00:05 ECG was reviewed by the Attending Physician. Vital Signs: 11/27 17:51 BP 115 / 45; Pulse 90; Resp 19; Temp 98.6; Pulse Ox 95% on R/A; Weight 54.43 kg; Height iw 5 ft. 0 in. ; 20:00 BP 152 / 60; Pulse 85; Resp 18; Pulse Ox 99% on 2 lpm NC; cp4 22:00 BP 143 / 57; Pulse 80; Resp 18; Pulse Ox 92% on R/A; cp4 23:00 BP 124 / 53; Pulse 79; Resp 18; Pulse Ox 96% ; cp4 11/28 00:00 BP 144 / 70; Pulse 16; Resp 79; Pulse Ox 97% ; cp4 01:00 BP 127 / 60; Pulse 61; Resp 15; Pulse Ox 99% ; cp4 02:00 BP 138 / 64; Pulse 71; Resp 15; Pulse Ox 98% ; cp4 02:58 BP 138 / 76; Pulse 69; Resp 15; Pulse Ox 96% ; cp4 11/27 17:51 Body Mass Index 23.44 (54.43 kg, 152.4 cm) iw MDM: 11/27 21:31 Medical Screening Exam initiated cp 23:45 Data reviewed: vital signs, nurses notes, lab test result(s), EKG, radiologic studies, cp CT scan, I have discussed the patient's presentation/case with the attending Emergency Department Physician; and as a result, I will transfer patient for cardiology consult and availability of optical laboratory technician. 11/27 17:59 Order name: CBC with Diff; Complete Time: 18:40 zm 11/27 18:40 Interpretation: Normal except: RBC 2.03; HGB 5.7; HCT 16.8; RDW 15.9; EOSINOPHIL % 5.7. cp 11/27 17:59 Order name: CMP; Complete Time: 19:46 11/27 19:47 Interpretation: Normal except: CL 110; GLUC 128; BUN 71; CRE 2.04; GFR 25; AST < 10; TP cp 6.0; ALB 3.2. 11/27 17:59 Order name: Lipase; Complete Time: 19:46 11/27 19:47 Interpretation: LIP 30; Reviewed. 11/27 18:04 Order name: Magnesium; Complete Time: 23:44 cp 11/27 18:04 Order name: NT PRO-BNP; Complete Time: 23:44 cp 11/27 18:04 Order name: PT-INR; Complete Time: 20:51 cp 11/27 20:51 Interpretation: Reviewed. 11/27 18:04 Order name: Troponin HS; Complete Time: 23:44 cp 11/27 23:45 Interpretation: Abnormal: Troponin HS 1080.2. cp 11/27 18:04 Order name: Ptt, Activated; Complete Time: 20:51 cp 11/27 18:04 Order name: Type And Screen cp 11/28 01:28 Interpretation: Reviewed. cp 11/27 20:52 Order name: Packed RBCs (Additional Unit) EDMS 11/27 21:05 Order name: ABO/RH no charge; Complete Time: 21:14 EDMS 11/27 23:03 Order name: CBC with Automated Diff EDMS 11/27 23:03 Order name: CBC with Automated Diff EDMS 11/27 23:03 Order name: Comprehensive Metabolic Panel EDMS 11/27 23:03 Order name: Comprehensive Metabolic Panel EDMS 11/27 23:03 Order name: Hematocrit EDMS 11/27 23:03 Order name: Hematocrit EDMS 11/27 23:03 Order name: Hematocrit EDMS 11/27 23:03 Order name: Hematocrit EDMS 11/27 23:03 Order name: Hemoglobin EDMS 11/27 23:03 Order name: Hemoglobin EDMS 11/27 23:03 Order name: Hemoglobin EDMS 11/27 23:03 Order name: Hemoglobin EDMS 11/27 18:04 Order name: XRAY Chest (1 view); Complete Time: 18:40 cp 11/27 20:11 Order name: CT Abd/Pelvis - Without Contrast; Complete Time: 21:14 cp 11/27 23:03 Order name: CONS Physician Consult EDMS 11/27 23:03 Order name: EKG Electrocardiogram EDMS 11/27 23:03 Order name: EKG Electrocardiogram EDMS 11/27 23:03 Order name: EKG Electrocardiogram EDMS 11/27 23:03 Order name: EKG Electrocardiogram EDMS 11/27 23:03 Order name: EKG Electrocardiogram EDMS 11/27 23:03 Order name: EKG Electrocardiogram EDMS 11/27 23:03 Order name: EKG Electrocardiogram EDMS 11/27 23:03 Order name: EKG Electrocardiogram EDMS 11/27 23:03 Order name: EKG Electrocardiogram EDMS 11/27 23:03 Order name: EKG Electrocardiogram EDMS 11/27 23:03 Order name: EKG Electrocardiogram EDMS 11/27 17:59 Order name: IV Saline Lock; Complete Time: 19:57 zm 11/27 17:59 Order name: Labs collected and sent; Complete Time: 19:57 zm 11/27 18:04 Order name: Cardiac monitoring; Complete Time: 19:47 cp 11/27 18:04 Order name: EKG - Nurse/Tech; Complete Time: 19:47 cp 11/27 18:04 Order name: IV Saline Lock; Complete Time: 19:47 cp 11/27 18:04 Order name: Labs collected and sent; Complete Time: 19:47 cp 11/27 18:04 Order name: O2 Per Protocol; Complete Time: 19:47 cp 11/27 18:04 Order name: O2 Sat Monitoring; Complete Time: 19:47 cp 11/27 19:59 Order name: Transfuse; Complete Time: 23:18 cp EC:47 Rate is 86 beats/min. Rhythm is regular. NC interval is normal. QRS interval is normal. cp QT interval is normal. T waves are Inverted in lead aVR. Interpreted by me. Reviewed by me. 11/28 00:05 Rate is 82 beats/min. Rhythm is regular. NC interval is normal. QRS interval is normal. cp QT interval is normal. T waves are Inverted in lead aVR. Interpreted by me. Reviewed by me. Administered Medications: 11/27 20:52 Drug: Pantoprazole IV 8 mg/hr IV at 25 ml/hr continuous; (Standard dilution is 80 mg in cp4 250 mL NS) Route: IV; Rate: 25 ml/hr; Site: right antecubital; 11/28 02:57 Follow up: IV Status: Infusion continued [facility] 11/27 20:52 Drug: Pantoprazole IVP 40 mg IVP once Route: IVP; Site: right antecubital; cp4 21:42 Follow up: Response: No adverse reaction [facility] 21:41 Drug: Piperacillin-Tazobactam IVPB 3.375 grams IVPB once over 60 mins; (mix in NS 100 cp4 mL) Route: IVPB; Infused Over: 60 mins; Site: left antecubital; 22:31 Follow up: Response: No adverse reaction; IV Status: Completed infusion [facility] 11/28 02:54 Drug: Pantoprazole IVP 40 mg IVP once Route: IVP; Site: right antecubital; lg3 02:54 Follow up: Response: No adverse reaction; Medication Administered at Departure lg3 Disposition Summary: 11/27/24 23:54 Transfer Ordered Notes: Transfer Location: [facility] cp Reason: Higher level of care cp Condition: Stable(11/27/24 23:54) cp Problem: new(11/27/24 23:54) cp Symptoms: have improved(11/27/24 23:54) cp Accepting Physician: DR Gage(11/28/24 03:09) cp4 Diagnosis - Non ST elevation CA cp - Anemia in other chronic diseases classified elsewhere(11/27/24 23:54) cp - GI Bleed/ Gastrointestinal hemorrhage, unspecified(11/27/24 23:54) cp Forms: - Medication Reconciliation Form cp - SBAR form cp Addendum: 11/29/2024 08:10 Co-signature as Attending Physician, Flavio Gandhi MD I agree with the assessment and c perez plan of care. Signatures: Dispatcher [employer] Flavio Cruz MD MD cha Williams, Irene RN DARIAN iw Flavio Ro, PA Virgie Zuluaga cp, RN RN lg3 Caren Moctezuma Rebecca rv1 Pam Recio cp4 Corrections: (The following items were deleted from the chart) 11/27 18:04 18:04 MAGNESIUM+C.LAB.BRZ ordered. EDMS EDMS 18:04 18:04 PROBNP+C.LAB.BRZ ordered. EDMS EDMS 18:04 18:04 PROTIME (+INR)+COAG.LAB.BRZ ordered. EDMS EDMS 18:04 18:04 Troponin High Sensitivity+C.LAB.BRZ ordered. EDMS EDMS 18:04 18:04 PTT, ACTIVATED+COAG.LAB.BRZ ordered. EDMS EDMS 18:04 18:04 TYPE AND SCREEN+BB.LAB.BRZ ordered. EDMS EDMS 18:04 18:04 Chest Single View+RAD.RAD.BRZ ordered. EDMS EDMS 19:47 19:47 Reviewed. cp cp 20:11 20:11 Abdomen Pelvis Wo Con+CT.RAD.BRZ ordered. EDMS EDMS 22:53 18:04 CBC+H.LAB.BRZ ordered. EDMS EDMS 22:54 18:04 BASIC METABOLIC PANEL+C.LAB.BRZ ordered. EDMS EDMS 22:54 18:04 HEPATIC FUNCTION+C.LAB.BRZ ordered. EDMS EDMS 23:13 21:31 cp rv1 23:50 23:13 210 rv1 rv1 23:52 21:31 Inpatient Admission cp cp 23:52 21:31 Cali Zamora cp cp 23:52 21:31 Telemetry/MedSurg (Inpatient) cp cp 23:52 21:31 Stable cp cp 23:52 21:31 new cp cp 23:52 21:31 have improved cp cp 23:52 21:31 Standard cp cp 23:52 21:31 GI Bleed/ Gastrointestinal hemorrhage, unspecified cp cp 23:52 21:31 Anemia in other chronic diseases classified elsewhere cp cp 23:52 23:50 rv1 cp 11/28 02:46 04 23:54 doctor cp cp 11/28 03:09 02:46 DR Gage cp cp4 11/29 00:46 00:41 Constitutional: Negative for body aches, chills, fever, poor PO intake, cp cp 00:46 00:41 Cardiovascular: Positive for chest pain, Negative for palpitations, cp cp 00:46 00:41 Respiratory: Positive for shortness of breath, on exertion. Negative for cough, cp wheezing, cp 00:46 00:41 Abdomen/GI: Positive for abdominal cramps, black/tarry stool, rectal bleeding, cp Negative for vomiting, diarrhea, cp 00:46 00:41 Eyes: Negative for injury, pain, redness, and discharge, cp cp 00:46 00:41 ENT: Negative for drainage from ear(s), ear pain, sore throat, difficulty cp swallowing, difficulty handling secretions, cp 00:46 00:41 Neuro: Positive for weakness, Negative for altered mental status, syncope, cp cp 00:46 00:41 All other systems are negative, cp cp 00:48 18 18:10 Eyes: Negative for injury, pain, redness, and discharge, cp cp 11/29 00:48 11/28 18:10 Constitutional: Negative for body aches, chills, fever, poor PO intake, cp cp 11/29 00:48 11/28 18:10 ENT: Negative for drainage from ear(s), ear pain, sore throat, difficulty cp swallowing, difficulty handling secretions, cp 11/30 99:48 11/28 18:10 Cardiovascular: Positive for chest pain, Negative for palpitations, cp cp 11/29 00:48 11/28 18:10 Respiratory: Positive for shortness of breath, on exertion. Negative for cp cough, wheezing, cp 11/29 00:48 11/28 18:10 Abdomen/GI: Positive for abdominal cramps, black/tarry stool, rectal cp bleeding, Negative for vomiting, diarrhea, cp 11/29 00:48 11/28 18:10 Neuro: Positive for weakness, Negative for altered mental status, syncope, cp cp 11/29 00:48 11/28 18:10 All other systems are negative, cp cp
[2024-11-27] MEDS ORDERED: NA CHLORIDE 0.9% 100 ML ONE (21:34)
[2024-11-27] MEDS ORDERED: PIPERACIL/TAZO 3.375 GM VIAL IV ONE (21:34)
--- NOTE | 2024-11-27 22:50 | P.HP ---
Certification for Inpatient Patient admitted to: Inpatient With expected LOS: >2 Midnights Practitioner: I am a practitioner with admitting privileges, knowledge of patient current condition, hospital course, and medical plan of care. Services: Services provided to patient in accordance with Admission requirements found in Title 42 Section 412.3 of the Code of Federal Regulations Patient History Date of Service: 11/28/24 Reason for admission: Anemia History of Present Illness: 74-year-old female with past medical history of renal cell carcinoma, hypertension, hyperlipidemia, COPD, depression, peripheral artery disease status post stent placement on Xarelto , CKD who was brought to ER with generalized weakness and melena. Patient denies any chest pain or shortness of breath. No fever or chills. No nausea vomiting or diarrhea.. Patient had a recent colonoscopy and had some polyps removed which were benign as per the patient. Last dose of Xarelto was yesterday. Patient started having melena for the last 3 days and has been progressively worsening and was brought to ER. Denies any abdominal pain. Complains of nausea . Patient was assessed in the ER and was noted to have a hemoglobin of 5.7 and was admitted for further management and surgical consult Allergies codeine Allergy (Severe, Verified 10/16/24 08:52) Vomiting metronidazole [From Flagyl] Allergy (Severe, Verified 10/16/24 08:52) Hives vancomycin Allergy (Severe, Verified 10/16/24 08:52) Hives adhesive tape Allergy (Verified 10/16/24 08:52) Blister latex Allergy (Verified 10/16/24 08:52) Blister hydralazine Adverse Reaction (Verified 10/16/24 08:52) Shortness of breath Home medications list reviewed: Yes Home Medications: Citalopram [Celexa] 20 mg PO DAILY 05/24/21 Famotidine [Pepcid] 20 mg PO DAILY 05/24/21 Umeclidinium Brm/Vilanterol Tr [Anoro Ellipta 62.5-25 Mcg INH] 1 each IH DAILY 05/24/21 Telmisartan/Hydrochlorothiazid [Telmisartan-Hctz 80-12.5 mg Tb] 1 each PO DAILY 05/09/24 Aspirin 81 mg PO DAILY 10/16/24 Ezetimibe [Zetia] 20 mg PO DAILY 10/16/24 Magnesium [Magnesium Gluconate] 400 mg PO DAILY 10/16/24 NIFEdipine [Nifedipine ER] 30 mg PO BEDTIME 10/16/24 Rivaroxaban [Xarelto] 20 mg PO DAILY 10/16/24 - Past Medical/Surgical History Diabetic: Yes Past Medical History: Reviewed- Non-Contributory -: Renal cell carcinoma sp resection -: CKD III (Dr. Braun/ [place]) -: HTN -: HLD -: COPD -: Depression -: PAD -: Hypercholesterolemia Past Surgical History: Reviewed- Non-Contributory -: Partial nephrectomy -: Appendectomy -: Hysterectomy -: Bilateral shoulder surgery -: bilateral feet Psychosocial/ Personal History: Lives in an apartment with her sister. No oxygen or assistive devices - Family History Family History: Reviewed- Non-Contributory - Social History Smoking Status: Former smoker Alcohol use: No CD- Drugs: No Caffeine use: Yes Review of Systems 10-point ROS is otherwise unremarkable Physical Examination - Physical Exam General: Alert, In no apparent distress, Oriented x3 HEENT: Atraumatic, Normocephalic Neck: Supple Respiratory: Clear to auscultation bilaterally, Normal air movement Cardiovascular: Normal pulses, Regular rate/rhythm Capillary refill: <2 Seconds Gastrointestinal: Soft and benign, W/out hepatosplenomegaly Musculoskeletal: No clubbing, No swelling Integumentary: No rashes Neurological: Normal speech, Normal strength at 5/5 x4 extr, Cranial nerves 3-12 intact, Normal reflexes 2+ Lymphatics: No axilla or inguinal lymphadenopathy - Studies Laboratory Data (last 24 hrs) 11/27/24 11/27/24 11/27/24 19:39 18:08 18:08 WBC 8.10 Hgb 5.7 L* Hct 16.8 L Plt Count 355 PT 15.9 H INR 1.42 APTT 32.2 Sodium 140 Potassium 3.5 BUN 71 H Creatinine 2.04 H Glucose 128 H Total Bilirubin 0.2 AST < 10 L ALT 17 Alkaline Phosphatase 109 Lipase 30 Assessment and Plan - Plan Anemia due to GI bleed Transfused 2 unit PRBC Monitor H&H closely Started on PPI N.p.o. for now Will hold Xarelto for now H&H monitored serially and transfuse as needed Consulted Dr. Collins GI bleed No previous history of gastric ulcers History of colonic polyps present N.p.o. for now Awaiting further recommendations from surgery Hypertension Antihypertensives titrated Continue home medications and titrate as needed Hyperlipidemia Continue statin CKD stage II History of renal cell carcinoma Monitor renal parameters Electrolytes monitor and replace accordingly GI/DVT prophylaxis Advanced directive full code Patient was found to have NSTEMI and was transferred to higher level of care Discharge Plan: Home Plan to discharge in: 48 Hours - Advance Directives Does patient have a Living Will: No Does patient have a Durable POA for Healthcare: Yes - Code Status/Comfort Care Code Status: Full Code Time Spent Managing Pts Care (In Minutes): 48
[2024-11-27] MEDS ORDERED: ONDANSETRON 4 MG/2 ML VIAL IV PRN (22:57)
[2024-11-27] MEDS ORDERED: ACETAMINOPHEN 325 MG TABLET PO PRN (22:57)
[2024-11-27] MEDS ORDERED: NA CHLORIDE 0.9% 1,000 ML IV SCH (23:00)
[2024-11-27] MEDS ORDERED: NA CHLORIDE 0.9% 250 ML IV SCH (23:00)
[2024-11-27 23:09] LABS: Magnesium 2.4 mg/dL (1.6-2.4)
[2024-11-27 23:44] LABS: Troponin High Sensitivity 1080.2 pg/mL (<58.9)
[2024-11-28] MEDS ORDERED: PANTOPRAZOLE 40 MG INJ ONE (02:51)
[2024-11-28 03:36] VITALS: TEMP 98.6
[2024-11-28 03:45] VITALS: BP 138/76; O2SAT 96
[2024-11-28] MEDS ORDERED: PANTOPRAZOLE 40 MG INJ IVP SCH (09:00)
--- NOTE | 2024-12-03 12:57 | EKG ---
Test Date: 2024-11-27 Test Time: 23:59:23 Knitting Machine Fixer: CHRISTEN MEASUREMENT RESULTS: Intervals: Rate: 82 MT: 186 QRSD: 88 QT: 412 QTc: 481 [place]: P: 66 MT: 186 QRS: 66 T: 45 INTERPRETIVE STATEMENTS: Normal sinus rhythm Normal ECG Compared to ECG 11/27/2024 19:39:46 ST (T wave) deviation no longer present Electronically Signed On 12-03-24 12:43:53 CDT by Koffi Carranza
--- NOTE | 2024-12-03 13:00 | EKG ---
Test Date: 2024-11-27 Test Time: 19:39:46 Information Assurance: KIERRA MEASUREMENT RESULTS: Intervals: Rate: 86 UT: 174 QRSD: 82 QT: 378 QTc: 452 [place]: P: 70 UT: 174 QRS: 70 T: 62 INTERPRETIVE STATEMENTS: Normal sinus rhythm Nonspecific ST abnormality Abnormal ECG Compared to ECG 05/09/2024 13:35:50 ST (T wave) deviation now present Electronically Signed On 12-03-24 12:44:23 CDT by Koffi Carranza
== END 2024-11-28 03:00 | disposition short-term general hospital (02) | DRG 377 ==
LOC: ER 17:33 → ERHOLD 22:57
PROVIDERS: ADMIT Family Medicine; ATTEND Internal Medicine
PROC: 30233N1 Transfusion of Nonautologous Red Blood Cells into Peripheral Vein, Percutaneous Approach (ICD-10-PCS; principal; 2024-11-27)
DX: K92.1 Melena (principal); I21.4 Non-ST elevation (NSTEMI) myocardial infarction; E78.00 Pure hypercholesterolemia, unspecified; K21.9 Gastro-esophageal reflux disease without esophagitis; J44.9 Chronic obstructive pulmonary disease, unspecified; I12.9 Hypertensive chronic kidney disease with stage 1 through stage 4 chronic kidney disease, or unspecified chronic kidney disease; N18.2 Chronic kidney disease, stage 2 (mild); D63.1 Anemia in chronic kidney disease; Z79.01 Long term (current) use of anticoagulants; Z88.5 Allergy status to narcotic agent; Z88.8 Allergy status to other drugs, medicaments and biological substances; Z88.1 Allergy status to other antibiotic agents; Z90.49 Acquired absence of other specified parts of digestive tract; Z87.891 Personal history of nicotine dependence; Z85.528 Personal history of other malignant neoplasm of kidney
CPT/HCPCS: 36415; 71045; 74176; 80053; 83690; 83735; 83880; 84484; 85025; 85610; 85730; 86850; 86900; 86901; 86920; 93005; 99285; J2470; J2543; J7050; P9016